=== PATIENT | male | born 1945 | race African-American/Black ===

== ENCOUNTER 2019-03-09 05:05 | Inpatient (IN) | payer MEDICARE ==
[2019-03-09] VITALS (7 sets, daily range): BP systolic 102–113; BP diastolic 55–59
[~2019-03-09] VITALS: Ht 172.7 cm; Wt 84.6 kg
[~2019-03-09 05:05] MED LIST: ALPHAGAN P5 ML OU; ASPIRIN325 MG PO; BENAZEPRIL HCL10 MG PO; CALCITRIOL0.25 MCG PO; CEPHALEXIN500 MG PO; GLIMEPIRIDE2 MG PO; GLYBURIDE5 MG PO; KLOR-CON M2020 MEQ PO; LASIX20 MG PO; LOPRESSOR25 MG PO; LUMIGAN2.5 M1 OU; MINOCYCLINE PO; NORVASC5 MG PO; NOVOLOG MI100 UNIT/1 SQ; NOVOLOG MI100 UNITS/; PEPCID20 MG PO; REGLAN10 MG PO; VASOTEC10 MG PO; VICODIN 5-5001 EACH PO; VITAMIN D1000 UNIT PO; XALATAN2.5 ML PO; ZOCOR20 MG PO
--- OUTSIDE RECORDS SUMMARY | 2019-03-09 05:10 | XMS REPORT ---
Author Author [facility] Address Unknown Phone Unavailable Care Team Providers Care Learning Facilitator Name Role Phone Unavailable Unavailable Problems This patient has no known problems. Allergies, Adverse Reactions, Alerts This patient has no known allergies or adverse reactions. Medications This patient has no known medications.
--- OUTSIDE RECORDS SUMMARY | 2019-03-09 05:10 | XMS REPORT ---
Author Organization Unknown Address [address] [place] [id number] Phone [phone] Care Team Providers Care Travel Pt Name Role Phone ALLISON "MIKAYLA" JAE CASAREZ 3 [phone] Allergies Code Code System Name Reaction Severity Status Onset No Known Allergies Active NKDA Medications Name Status Start Date Stop Date Advocate Pen Needle 31 gauge x 09/29" Active Not available amlodipine 10 mg tablet TAKE ONE TABLET BY MOUTH ONCE DAILY FOR 90 DAYS Active Not available aspirin 325 mg tablet Take 1 tablet every day by oral route. Active Not available benazepril 20 mg tablet TAKE ONE TABLET BY MOUTH ONCE DAILY FOR 90 DAYS Active Not available bupropion HCl XL 150 mg 24 hr tablet, extended release Take 1 tablet every day by oral route in the morning for 90 days. Active Not available calcitriol 0.25 mcg capsule Take 1 capsule every day by oral route. Active Not available clotrimazole 1 % topical cream APPLY 1 INCH TO THE AFFECTED AND SURROUNDING AREAS OF SKIN BY TOPICAL ROUTE 2 TIMES PER DAY IN THE MORNING AND EVENING Active Not available enalapril maleate 20 mg tablet Take 1 tablet every day by oral route. Completed 06/30/2016 famotidine 40 mg tablet TAKE ONE TABLET BY MOUTH ONCE DAILY AT BEDTIME Active Not available fluoxetine 20 mg capsule Take 1 capsule every day by oral route for 90 days. Active Not available furosemide 20 mg tablet Take 1 tablet twice a day by oral route. Active Not available glimepiride 4 mg tablet Take 1 tablet twice a day by oral route with meals. Active Not available metoprolol tartrate 100 mg tablet Take 1 tablet twice a day by oral route. Completed 02/28/2017 05/31/2017 Novolog Mix 70-30 FlexPen U-100 Insulin 100 unit/mL subcutaneous pen INJECT 20 UNITS IN THE AM AND 40 UNITS IN THE EVENING Completed 05/31/2017 Novolog Mix 70-30 U-100 Insulin 100 unit/mL subcutaneous solution INJECT 20 UNITS SUBCUTANEOUSLY IN THE MORNING, AND 40 UNITS IN THE EVENING Active Not available Novolog Mix 70-30FlexPen U-100 inject 20-4 units twice a day with meals Completed 11/28/2016 omega 3 600 mg-dha 216 mg-epa 324 mg-fish oil 1,200 mg capsule,del rel Take 2 capsules twice a day by oral route for 90 days. Active Not available Protonix 40 mg tablet,delayed release Take 1 tablet every day by oral route for 30 days. Completed 10/19/2017 rosuvastatin 40 mg tablet Take 1 tablet every day by oral route for 90 days. Active Not available simvastatin 40 mg tablet Take 1 tablet every day by oral route. Completed 12/19/2016 tamsulosin 0.4 mg capsule Take 1 capsule every day by oral route for 90 days. Active Not available Viagra 100 mg tablet take 1 tablet 30 minutes prior to sexual activity Active Not available Victoza 3-Alfonso 0.6 mg/0.1 mL (18 mg/3 mL) subcutaneous pen injector Inject 1.8 mg every day by subcutaneous route at bedtime for 90 days. Active Not available Problems Name Status Onset Date Source Renal Disorder Due to Type 2 Diabetes Mellitus Active 05/15/2015 History Pure Hypercholesterolemia Active 05/15/2015 History Blindness - Both Eyes Active 05/15/2015 History Hypertensive Heart and Renal Disease with (Congestive) Heart Failure Active 05/15/2015 History Old Myocardial Infarction Active 05/15/2015 History Chronic Combined Systolic and Diastolic Heart Failure Active 05/15/2015 History Chronic Kidney Disease Stage 3 Active 05/15/2015 History Chronic Kidney Disease Unknown 05/15/2015 History History of Cerebrovascular Accident without Residual Deficits Active 05/15/2015 History Automatic Implantable Cardiac Defibrillator in Situ Active 05/15/2015 History Coronary Bypass Graft Finding Active 05/15/2015 History Long-term Current Use of Drug Therapy Unknown 05/15/2015 History Type 2 Diabetes Mellitus Unknown 05/28/2015 History Adult Health Examination Unknown 05/28/2015 History Screening for Disorder Unknown 05/28/2015 History 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 Active 05/28/2015 History Diabetic Retinopathy Associated with Type 2 Diabetes Mellitus Active 05/28/2015 History Moderate Recurrent Major Depression Active 06/03/2015 History Secondary Hyperparathyroidism Active 06/30/2016 Nonproliferative Diabetic Retinopathy Active 12/19/2016 Central Retinal Vein Occlusion Active 12/19/2016 Malignant Glaucoma Active 12/19/2016 Drug-induced Dyspepsia Active 10/19/2017 Procedures Date Name Performed by 06/30/2016 Electrocardiogram [facility] [place] [id number] [facility] [address] [place] [address] ([address]) 11/28/2016 Electrocardiogram [facility] [place] [address] [facility] [address] [place] [address] (Work Place) Notes: 12/29/2015: Defibrillator device; Surgery Date: 2012 Lab Results Date Name Specimen Result Interpretation Description Value Range Status Address 05/31/2017 CBC W/ Auto Diff Wbc 4.53 x10*3/L 4.23-9.07 x10*3/L Final [facility]: [address] [facility]rera[facility] Rbc 5.18 10*12/L 4.63-6.08 10*12/L Final [facility]: [address] HerreraFormerly [facility] Hemoglobin 13.90 g/dL 13.70-17.50 g/dL Final [facility]: [address] Tomas[address] Mari [address] [place] [address] Hematocrit 42.3 % 40.1-51.0 % Final [facility]: [address] Tomas[address] Mari [address] [place] [address] Mcv 81.7 fL 80.0-100.0 fL Final [facility]: [address] HerreraFormerly [facility] Mch 26.8 pg 25.7-32.2 pg Final [facility]: [address] T[address] HerreraFormerly [facility] Mchc 32.9 g/dL 32.3-36.5 g/dL Final [facility]: [address] T[address] HerreraFormerly [facility] RDW-SD 40.5 fL 35.1-43.9 fL Final [facility]: [address] Tomas[address] Jimenez [address] Platelet Count 209.0 k/uL 163.0-337.0 k/uL Final [facility]: [address] HerreraFormerly [facility] High Mpv 12.1 fL 7.5-11.5 fL Final [facility]: [address] T[address] HerreraFormerly [facility] Neut% 58.0 % 34.0-67.9 % Final [facility]: [address] HerreraFormerly [facility] Lymph% 29.8 % 21.8-53.1 % Final [facility]: [address] Tomasa Herrera [place] Mon% 11.3 % 5.3-12.2 % Final [facility]: [address] Tomasa Herrera [place] Low Eos% 0.7 % 0.8-7.0 % Final [facility]: [address] Tomasa Herrera [place] Baso% 0.2 % 0.2-1.2 % Final [facility]: [address] Tomasa Herrera [place] Neut# 2.6 x10*3/L 1.8-5.4 x10*3/L Final [facility]: [address] Tomas[address] Herrera [place] Lymph# 1.4 x10*3/L 1.3-3.6 x10*3/L Final [facility]: [address] Tomasa Herrera [place] Mon# 0.5 x10*3/L 0.3-0.8 x10*3/L Final [facility]: [address] Tomasa Herrera [place] Low Eos# 0.03 x10*3/L 0.04-0.54 x10*3/L Final [facility]: [address] Tomasa Herrera [place] Baso# 0.01 x10*3/L 0.01-0.08 x10*3/L Final [facility]: [address] Tomasa Herrera [place] 05/31/2017 CMP, Serum or Plasma Alt 27 U/L 0-55 U/L Final [facility]: [address] Tomasa Mari [address] [place] [address] Ast 23 U/L 5-34 U/L Final [facility]: [address] HerreraFormerly [facility] Bun 18.5 mg/dL 8.4-25.7 mg/dL Final [facility]: [address] Tomasa Mari [address] [place] [address] Alk Phos 75 unit/L 40-150 unit/L Final [facility]: [address] HerreraFormerly [facility] High Glucose 300 mg/dL 70-99 mg/dL Final [facility]: [address] HerreraFormerly [facility] Albumin 3.6 g/dL 3.5-5.0 g/dL Final [facility]: [address] T[address] HerreraFormerly [facility] High Creatinine 1.71 mg/dL 0.72-1.25 mg/dL Final [facility]: [address] Tomas[address] Jimenez [place] [address], [place] Low eGFR Non- 40 mL/min/1.73m2 >60 mL/min/1.73m2 Final [facility]: [address] Jimenez [address] Total Bilirubin 0.4 mg/dL 0.2-1.2 mg/dL Final [facility]: [address] Tomasa Mari [address] [place] [address] Low eGFR - 48 mL/min/1.73m2 >60 mL/min/1.73m2 Final [facility]: [address] HerreraFormerly [facility] Sodium 141 mEq/L 136-145 mEq/L Final [facility]: [address] Tomasa Jimenez [place] [address], [place] Potassium 3.8 mEq/L 3.5-5.1 mEq/L Final [facility]: [address] Tomas[address] Jimenez [address] Chloride 105 mmol/L 98-107 mmol/L Final [facility]: [address] Tomas[address] Jimenez [address] Total Protein 7.4 g/dL 6.4-8.3 g/dL Final [facility]: [address] Tomas[address] Jimenez [address] Calcium 9.2 mg/dL 8.8-10.0 mg/dL Final [facility]: [address] Tmoasa Jimenez [place] [address], [place] Co2 26.6 mmol/L 23.0-31.0 mmol/L Final [facility]: [address] Tomas[address] Jimenez [address] Anion Gap 9 calc Final [facility]: [address] Tomasa Mari [address] [place] [address] 05/31/2017 Lipid Panel, Serum Low Hdl 38 mg/dL 40-60 mg/dL Final [facility]: [address] Tomas[address] Jimenez [address] Triglyceride 76 mg/dL 0-149 mg/dL Final [facility]: [address] Tomas[address] Jimenez [address] VLDL Calc. 15 mg/dL Final [facility]: [address] Tomasa Jimenez [address] cholesterol/HDL Ratio 3.9 mg/dL Final [facility]: [address] Tomasa Jimenez [address] non-HDL Cholesterol Calc. 111 mg/dL 0-160 mg/dL Final [facility]: [address] Tomasa Jimenez [address] Cholesterol 149 mg/dL 0-199 mg/dL Final [facility]: [facility] Tomasa kwaku [address] LDL Calc. 96 mg/dL 0-130 mg/dL Final [facility]: [facility] Tomasa kwaku [address] 05/31/2017 HbA1C (Hemoglobin a1C), Blood High A1C W/eag 8.4 % 1.0-5.7 % Final [facility]: [address] [place] [address] Average Blood Glucose 194 mg/dL Final [facility]: [address] [place], [place] [address]kwaku [address] 02/28/2017 Phosphorus, Serum or Plasma Normal Phosphate (as Phosphorus) 3.3 mg/dL 2.1-4.3 mg/dL Final [facility]: [address] [place] [address] 02/28/2017 Magnesium, Serum or Plasma Normal Magnesium 2.2 mg/dL 1.5- 2.5 mg/dL Final [facility]: [address] [place] [address] 02/28/2017 CBC W/ Auto Diff Low Wbc 4.13 x10*3/L 4.23-9.07 x10*3/L Final [facility]: [facility] Tomasa kwaku [address] Rbc 5.59 10*12/L 4.63-6.08 10*12/L Final [facility]: [facility] Tomasa Fwkwaku [address] Hemoglobin 14.90 g/dL 13.70-17.50 g/dL Final [facility]: [facility] Tomasa Fwkwaku [address] Hematocrit 44.8 % 40.1-51.0 % Final [facility]: [facility] Tomasa kwaku [address] Mcv 80.1 fL 80.0-100.0 fL Final [facility]: [facility] Tomasa kwaku [address] Mch 26.7 pg 25.7-32.2 pg Final [facility]: [facility] Tomasa kwaku [address] Mchc 33.3 g/dL 32.3-36.5 g/dL Final [facility]: [facility] Tomasa kwaku [address] RDW-SD 41.8 fL 35.1-43.9 fL Final [facility]: [facility] Tomasa kwaku [address] Platelet Count 216.0 k/uL 163.0-337.0 k/uL Final [facility]: [address] Tomasa Herrera [facility] Mpv 11.8 fL 7.5-11.5 fL Final [facility]: 9[address] Tomasa Herrera [place] Neut% 42.8 % 34.0-67.9 % Final [facility]: [address] Tomasa Herrera [place] Lymph% 41.2 % 21.8-53.1 % Final [facility]: [address] Tomasa Herrera [place] High Mon% 14.0 % 5.3-12.2 % Final [facility]: [address] Tomasa Herrera [place] Eos% 1.5 % 0.8-7.0 % Final [facility]: [address] Tomasa Herrera [place] Baso% 0.5 % 0.2-1.2 % Final [facility]: [address] Tomasa Herrera [place] Neut# 1.8 x10*3/L 1.8-5.4 x10*3/L Final [facility]: [address] Tomasa Herrera [place] Lymph# 1.7 x10*3/L 1.3-3.6 x10*3/L Final [facility]: [address] Tomasa Herrera [place] Mon# 0.6 x10*3/L 0.3-0.8 x10*3/L Final [facility]: [address] Tomasa Herrera [place] Eos# 0.06 x10*3/L 0.04-0.54 x10*3/L Final [facility]: [address] Tomasa Herrera [place] Baso# 0.02 x10*3/L 0.01-0.08 x10*3/L Final [facility]: [address] Tomasa Herrera [place] 02/28/2017 CMP, Serum or Plasma Alt 24 U/L 0-55 U/L Final [facility]: [address] Tomas[address] HerreraFormerly [facility] Ast 20 U/L 5-34 U/L Final [facility]: 55 Tomas[address] HerreraFormerly [facility] Bun 20.0 mg/dL 8.4-25.7 mg/dL Final [facility]: [address] T[address] HerreraFormerly [facility] Alk Phos 74 unit/L 40-150 unit/L Final [facility]: [address] Tomasa Herrera, [place] High Glucose 115 mg/dL 70-99 mg/dL Final [facility]: [address] Tomasa Herrera, [place] Albumin 4.0 g/dL 3.5-5.0 g/dL Final [facility]: [address] HerreraFormerly [facility] High Creatinine 1.86 mg/dL 0.72-1.25 mg/dL Final [facility]: [address] Tomasa Herrera, [place] Low eGFR Non- 36 mL/min/1.73m2 >60 mL/min/1.73m2 Final [facility]: [address] HerreraFormerly [facility] Total Bilirubin 0.6 mg/dL 0.2-1.2 mg/dL Final [facility]: [address] HerreraFormerly [facility] Low eGFR - 44 mL/min/1.73m2 >60 mL/min/1.73m2 Final [facility]: [address] Tomas[address] Jimenez [address] Sodium 143 mEq/L 136-145 mEq/L Final [facility]: [address] Tomasa Jimenez [address] Potassium 4.0 mEq/L 3.5-5.1 mEq/L Final [facility]: [address] HerreraFormerly [facility] Chloride 104 mmol/L 98-107 mmol/L Final [facility]: [address] HerreraFormerly [facility] High Total Protein 8.6 g/dL 6.4-8.3 g/dL Final [facility]: [address] HerreraFormerly [facility] Calcium 9.6 mg/dL 8.8-10.0 mg/dL Final [facility]: [address] Tomasa Mari [address] [place] [address] Co2 29.8 mmol/L 23.0-31.0 mmol/L Final [facility]: [address] T[address] HerreraFormerly [facility] Anion Gap 9 calc Final [facility]: [address] Tomasa Herrera, [place] 02/28/2017 Lipid Panel, Serum Low Hdl 39 mg/dL 40-60 mg/dL Final [facility]: [address] Tomasa Jimenez [address] Triglyceride 133 mg/dL 0-149 mg/dL Final [facility]: [address] VLDL Calc. 27 mg/dL Final [facility]: [address] cholesterol/HDL Ratio 7 mg/dL Final [facility]: [address] High non-HDL Cholesterol Calc. 227 mg/dL 0-160 mg/dL Final [facility]: [address] High Cholesterol 266 mg/dL 0-199 mg/dL Final [facility]: [address] High LDL Calc. 200 mg/dL 0-130 mg/dL Final [facility]: [address] [place] [address], [place] 02/28/2017 HbA1C (Hemoglobin a1C), Blood High A1C W/eag 9.6 % 1.0-5.7 % Final [facility]: [address] [place] [address] Average Blood Glucose 229 mg/dL Final [facility]: [address] [place] [address] 02/28/2017 Protein:creatinine Ratio, Urine Normal Creatinine, Random Urine 84 mg/dL 20-370 mg/dL Final [facility]: [address] [place] [address] High Protein/creatinine Ratio 702 mg/g creat 22-128 mg/g creat Final [facility]: [address] [place] [address] High Protein, Total, Random Ur 59 mg/dL 5-25 mg/dL Final [facility]: [address] [place] [address] 02/28/2017 PTH (Parathyroid Hormone), Intact, Serum or Plasma High Parathyroid Hormone, Intact 176 pg/mL 14-64 pg/mL Final [facility]: [address] [place] [address] 12/22/2016 Fecal Occult Blood, Stool Fecal Globin (Medicare) by Immunochemistry not detected Final [facility]: [address] [place] [address] 12/14/2016 BNP (B-type Natriuretic Peptide), Serum or Plasma High B Type Natriuretic Peptide (BNP) 126 pg/mL <100 pg/mL Final [facility]: [address] [place] [address] 11/28/2016 Protein:creatinine Ratio, Urine Normal Creatinine, Random Urine 120 mg/dL 20-370 mg/dL Final [facility]: [address] [place] [address] High Protein/creatinine Ratio 1242 mg/g creat 22-128 mg/g creat Final [facility]: [address] [place] [address] High Protein, Total, Random Ur 149 mg/dL 5-25 mg/dL Final [facility]: [address] [place] [address] 11/28/2016 PTH (Parathyroid Hormone), Intact, Serum or Plasma High Parathyroid Hormone, Intact 112 pg/mL 14-64 pg/mL Final [facility]: [address] [place] [address] 11/28/2016 PSA, Serum or Plasma Blood venous Normal PSA, Total 3.2 NG/mL < or=4.0 NG/mL Final [facility]: [address] [place] [address] 11/28/2016 Phosphorus, Serum or Plasma Normal Phosphate (as Phosphorus) 2.6 mg/dL 2.1-4.3 mg/dL Final [facility]: [address] [place] [address] 11/28/2016 Magnesium, Serum or Plasma Normal Magnesium 2.2 mg/dL 1.5- 2.5 mg/dL Final [facility]: [address] [place] [address] 11/28/2016 CBC W/ Auto Diff Wbc 4.31 x10*3/L 2.90-10.50 x10*3/L Final [facility]: [address] [place] [address] High Rbc 5.82 10*12/L 3.61-5.21 10*12/L Final [facility]: [address] [place] [address] Hemoglobin 15.70 g/dL 12.30-17.50 g/dL Final [facility]: [address] Hematocrit 47.1 % 37.1-51.3 % Final [facility]: [address] Mcv 80.9 fL 79.4-101.6 fL Final [facility]: [address] Tomasa kwaku [address] Mch 27.0 pg 26.2-34.8 pg Final [facility]: [address] [place], [place] [address]kwaku [address] Mchc 33.3 g/dL 30.2-35.6 g/dL Final [facility]: [address] [place], [place] [address]kwaku [address] RDW-SD 39.8 fL 35.8-49.8 fL Final [facility]: [address] Tomasa Herrera [place] Platelet Count 191.0 k/uL 118.8-347.0 k/uL Final [facility]: [address] Tomasa Herrera [place] Mpv 12.4 fL 8.4-13.4 fL Final [facility]: [address] Tomasa Herrera [place] Neut% 49.9 % 39.1-76.5 % Final [facility]: [address] Tomasa Herrera [place] Lymph% 34.8 % 13.8-46.8 % Final [facility]: [address] Tomasa Herrera [place] Mon% 14.4 % 4.6-14.4 % Final [facility]: [address] Tomasa Herrera [place] Low Eos% 0.7 % 0.8-7.3 % Final [facility]: [address] Tomasa Herrera [place] Baso% 0.2 % 0.2-1.5 % Final [facility]: [address] Tomasa Herrera [place] Neut# 2.2 x10*3/L 0.8-7.0 x10*3/L Final [facility]: [address] Tomasa Herrera [place] Lymph# 1.5 x10*3/L 0.6-3.2 x10*3/L Final [facility]: [address] Tomasa Herrera [place] Mon# 0.6 x10*3/L 0.2-1.0 x10*3/L Final [facility]: [address] Tomasa Herrera [place] Low Eos# 0.03 x10*3/L 0.04-0.51 x10*3/L Final [facility]: [address] Tomasa Herrera [place] Baso# 0.01 x10*3/L 0.01-0.09 x10*3/L Final [facility]: [address] Tomasa Herrera [place] 11/28/2016 CMP, Serum or Plasma Alt 21 U/L 0-55 U/L Final [facility]: [address] HerreraFormerly [facility] Ast 19 U/L 5-34 U/L Final [facility]: [address] Tomasa Herrera, [place] Bun 19 mg/dL 8-26 mg/dL Final [facility]: [address] Tomasa Herrera, [place] Alk Phos 75 unit/L 40-150 unit/L Final [facility]: [address] Tomasa Herrera, [place] High Glucose 359 mg/dL 70-99 mg/dL Final [facility]: [address] Tomasa Herrera, [place] Albumin 3.7 g/dL 3.5-5.0 g/dL Final [facility]: [address] Tomasa Herrera, [place] High Creatinine 1.84 mg/dL 0.72-1.25 mg/dL Final [facility]: [address] Tomasa Herrera [place] Low eGFR Non- 37 mL/min/1.73m2 >60 mL/min/1.73m2 Final [facility]: [address] Tomasa Herrera [place] Total Bilirubin 0.6 mg/dL 0.2-1.2 mg/dL Final [facility]: [address] HerreraFormerly [facility] Low eGFR - 44 mL/min/1.73m2 >60 mL/min/1.73m2 Final [facility]: [address] Tomasa Herrera [place] Sodium 141 mEq/L 136-145 mEq/L Final [facility]: [address] Tomasa Herrera, [place] Potassium 3.7 mEq/L 3.5-5.1 mEq/L Final [facility]: [address] Tomasa Herrera, [place] Chloride 102 mmol/L 98-107 mmol/L Final [facility]: [address] Tomasa Herrera, [place] Total Protein 8.3 g/dL 6.4-8.3 g/dL Final [facility]: 9055 Tomasa Herrera, [place] Calcium 9.5 mg/dL 8.8-10.0 mg/dL Final [facility]: 9055 Tomasa Herrera, [place] Co2 27.2 mmol/L 23.0-31.0 mmol/L Final [facility]: 9055 Tomasa Herrera, [place] Anion Gap 12 calc Final [facility]: 9055 Tomasa Herrera [place] 11/28/2016 Lipid Panel, Serum Low Hdl 37 mg/dL 40-60 mg/dL Final [facility]: [address] Triglyceride 141 mg/dL 0-149 mg/dL Final [facility]: [address] VLDL Calc. 28 mg/dL Final [facility]: [address] cholesterol/HDL Ratio 6 mg/dL Final [facility]: [address] High non-HDL Cholesterol Calc. 179 mg/dL 0-160 mg/dL Final [facility]: [address] High Cholesterol 216 mg/dL 0-199 mg/dL Final [facility]: [address] High LDL Calc. 151 mg/dL 0-130 mg/dL Final [facility]: [address] [place] [address], [place] 11/28/2016 T4, Total, Serum T4 Total 7.32 ug/dL 4.87-11.72 ug/dL Final [facility]: [address] [place] [address] 11/28/2016 TSH, Serum or Plasma Tsh 1.750 uIU/mL 0.350-4.940 uIU/mL Final [facility]: [address] 11/28/2016 HbA1C (Hemoglobin a1C), Blood High A1C W/eag 10.9 % 1.0- 5.7 % Final [facility]: [address] [place] [address] Average Blood Glucose 266 mg/dL Final [facility]: [address] [place] [address] 06/30/2016 Lipid Panel, Serum High Cholesterol, Total 304 mg/dL 125- 200 mg/dL Final [facility] Lab: [address], [place] Normal HDL Cholesterol 43 mg/dL > or=40 mg/dL Final [facility] Lab: [address], [place] Normal Triglycerides 129 mg/dL <150 mg/dL Final [facility] Lab: [address], [place] High LDL-cholesterol 235 mg/dL (calc) <130 mg/dL (calc) Final [facility] Lab: [address], [place] High Chol/hdlc Ratio 7.1 (calc) < or=5.0 (calc) Final [facility] Lab: [address], [place] High Non HDL Cholesterol 261 mg/dL (calc) Final [facility]: [address], [place] 06/30/2016 CBC W/ Auto Diff Normal White Blood Cell Count 5.5 thousand/uL 3.8-10.8 thousand/uL Final [facility]: [address], [place] Normal Red Blood Cell Count 5.48 million/uL 4.20-5.80 million/uL Final [facility] Lab: [address], [place] Normal Hemoglobin 14.7 g/dL 13.2-17.1 g/dL Final [facility]: [address], [place] Normal Hematocrit 44.8 % 38.5-50.0 % Final [facility]: [address], [place] Normal Mcv 81.9 fL 80.0-100.0 fL Final [facility]: [address], [place] Low Mch 26.9 pg 27.0-33.0 pg Final [facility]: [address], [place] Normal Mchc 32.8 g/dL 32.0-36.0 g/dL Final [facility]: [address], [place] High Rdw 15.1 % 11.0-15.0 % Final [facility]: [address], [place] Normal Platelet Count 196 thousand/uL 140-400 thousand/uL Final [facility]: [address], [place] Normal Mpv 11.0 fL 7.5-11.5 fL Final [facility] Lab: [address], [place] Normal Absolute Neutrophils 2855 cells/uL 6550-2537 cells/uL Final [facility]: [address], [place] Normal Absolute Lymphocytes 2085 cells/uL 850-3900 cells/uL Final [facility] Lab: [address], [place] Normal Absolute Monocytes 523 cells/uL 200-950 cells/uL Final [facility]: [address], [place] Normal Absolute Eosinophils 22 cells/uL 15-500 cells/uL Final [facility] Lab: [address], [place] Normal Absolute Basophils 17 cells/uL 0-200 cells/uL Final [facility] Lab: [address] [facility], [place] Normal Neutrophils 51.9 % Final [facility]: [address] [facility], [place] Normal Lymphocytes 37.9 % Final [facility]: [address] [facility], [place] Normal Monocytes 9.5 % Final [facility]: 70 [facility], [place] Normal Eosinophils 0.4 % Final [facility]: 70 [facility], [place] Normal Basophils 0.3 % Final [facility]: 70 [facility], [place] 06/30/2016 T4, Total, Serum Normal T4 (Thyroxine), Total 8.6 mcg/dL 4.5-12.0 mcg/dL Final [facility] Lab: [address] [place] [address], [place] 06/30/2016 TSH, Serum or Plasma Normal Tsh 2.89 mIU/L 0.40-4.50 mIU/L Final [facility] Lab: [address] [place] [address], [place] Albumin:creatinine Ratio, Urine Type Urine Microlalbumin 150 mg/L [facility]: [address] [facility] [address], [place] Type Urine Creatinine 100 mg/dL [facility]: [address] [facility] 200, [place] Type A:C Ratio >300 mg/g (High Abnormal) [facility]: [address] [facility] 200, [place] Electrocardiogram Rate & Rhythm [facility]: [address] [facility] 200, [place] Qrs [facility]: [address] [facility] 200, [place] Interval [facility]: [address] [facility] 200, [place] QRS Duration [facility]: [address] [facility] 200, [place] QT Interval [facility]: [address] [facility] 200, [place] Albumin:creatinine Ratio, Urine Type Urine Microlalbumin 150 mg/L [facility]: [address] [facility] 200, [place] Type Urine Creatinine 300 mg/dL [facility]: [address] [facility] 200, [place] Type A:C Ratio 30-300 mg/g (Abnormal) [facility]: [address] [facility] 200, [place] Electrocardiogram Rate & Rhythm [facility]: [address] [facility] [address], [place] Qrs [facility]: [address] [address], [place] Interval [facility]: [address] [address], [place] QRS Duration [facility]: [address] [address], [place] QT Interval [facility]: [address] [address], [place] Past Encounters 10/19/2017 Avulsion of Toenail; Hypertensive Heart and Renal Disease with (Congestive) Heart Failure; Chronic Combined Systolic and Diastolic Heart Failure; 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; Secondary Hyperparathyroidism; Blindness - Both Eyes; Recurrent Major Depression in Partial Remission; Vitreous Hemorrhage; Diabetic Retinopathy Associated with Type 2 Diabetes Mellitus; Drug- induced Dyspepsia; Malignant Glaucoma; Central Retinal Vein Occlusion; Nonproliferative Diabetic Retinopathy; Old Myocardial Infarction; Automatic Implantable Cardiac Defibrillator in Situ; Coronary Bypass Graft Finding; Renal Disorder Due to Type 2 Diabetes Mellitus; Chronic Kidney Disease Stage 3; History of Cerebrovascular Accident without Residual Deficits; Lower Urinary Tract Symptoms Due to Benign Prostatic Hypertrophy; Mixed Hyperlipidemia Allison Caballero MD: [address] [facility], [address] [address], Ph. 10/06/2017 Ijeoma Mcclure: 9055 [facility], [address] [address], Ph. 06/20/2017 Emelirod Millan: 9055 [facility], [address] [address], Ph. 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 05/02/2017 Cassaine Millan: 9055 [facility], [address] [address], Ph. 04/06/2017 Cassaine Millan: 9055 [facility], [address] [address], Ph. 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 02/03/2017 Nkechi Caballero: 9055 [facility] [address] [address], Ph. 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 11/28/2016 Adult Health Examination; Body Mass Index 30+ - Obesity; Hypertensive Heart and Renal Disease with (Congestive) Heart Failure; Chronic Combined Systolic and Diastolic Heart Failure; Diabetic Retinopathy Associated with Type 2 Diabetes Mellitus; 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; Renal Disorder Due to Type 2 Diabetes Mellitus; Chronic Kidney Disease Stage 3; Secondary Hyperparathyroidism; Severe Recurrent Major Depression without Psychotic Features; Automatic Implantable Cardiac Defibrillator in Situ; Old Myocardial Infarction; Coronary Bypass Graft Finding; Blindness - Both Eyes; G astroesophageal Reflux Disease without Esophagitis; Pure Hypercholesterolemia; History of Cerebrovascular Accident without Residual Deficits; Impotence of Organic Origin; Tinea Pedis; Screening for Malignant Neoplasm of Prostate; Screening for Malignant Neoplasm of Colon; Advance Directive Discussed with Patient Allison Caballero MD: 68951 [facility], [address] [address], [place] [address], Ph. 09/01/2016 Moderate Recurrent Major Depression; 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; Hypertensive Heart and Renal Disease with (Congestive) Heart Failure; Secondary Hyperparathyroidism; Chronic Combined Systolic and Diastolic Heart Failure; Blindness - Both Eyes Allison Caballero MD: 11652 [facility], [address], [place] [address], Ph. 06/30/2016 Adult Health Examination; Moderate Recurrent Major Depression; Hypertensive Heart and Renal Disease with (Congestive) Heart Failure; Chronic Combined Systolic and Diastolic Heart Failure; Old Myocardial Infarction; Automatic Implantable Cardiac Defibrillator in Situ; Coronary Bypass Graft Finding; 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; Diabetic Retinopathy Associated with Type 2 Diabetes Mellitus; Renal Disorder Due to Type 2 Diabetes Mellitus; Chronic Kidney Disease Stage 3; Pure Hypercholesterolemia; Gastroesophageal Reflux Disease without Esophagitis; Secondary Hyperparathyroidism; Impotence of Organic Origin; Blindness - Both Eyes; History of Cerebrovascular Accident without Residual Deficits; Screening for Malignant Neoplasm of Colon; Screening for Malignant Neoplasm of Prostate; Immunization Allison Caballero MD: 15356 [facility], [facility] 200, [place] [address], Ph. Social History Smoking Status Never Smoker Vaccine List Vaccine Type influenza, high dose seasonal 06/30/20160.5 mL 05/31/20170.5 mL pneumococcal polysaccharide PPV23 06/30/20160.5 mL Notes: decline's all vaccine's -10/19/2017-shaina Plan of Care Patient Instructions It was good to see you in the office today for your Medicare Annual Wellness Visit. You have been provided some information on healthy nutrition, including a diet rich in fruits and vegetables, minimizing simple carbohydrates, salt, and saturated fats. I want to encourage regular cardiovascular exercise such as walking at least 30 minutes daily, 5 times per week. Please remember to schedule any preventive health measures that we talked about today. You have also been provided education on fall prevention and community- based lifestyle interventions to help reduce health risks and promote healthy living in your [employer] folder. Screening Recommendations 1. Vaccines Pneumococcal: discussed today and information sent with patient in their [facility] health folder Influenza: discussed today and information sent with patient in their [facility] health folder Shingles: discussed today and information sent with patient in their [facility] health folder Tetanus: discussed today and information sent with patient in their [facility] health folder 2. Prostate Screening: discussed today and information sent with patient in their [facility] health folder 3. Colorectal cancer Screening Colonoscopy: discussed today and information sent with patient in their [facility] health folder Fecal Occult Blood: discussed today and information sent with patient in their [facility] health folder 4. Bone Mass Measurement: discussed today 5. Eye Exam Screening: discussed today 6. Cholesterol Screening: discussed today 7. Diabetes Screening: discussed today Reminders Provider Appointments None recorded. Lab None recorded. Referral None recorded. Procedures None recorded. Surgeries None recorded. Imaging None recorded. Vitals 10/19/2017 01:30PM Est Patient Height Weight BMI Blood Pressure 5 ft 8 in 197.8 lbs 30.1 kg/m2 150/74 mm[Hg] 05/31/2017 08:30AM Est Patient Height Weight BMI Blood Pressure 5 ft 8 in 206 lbs 31.3 kg/m2 163/86 mm[Hg] 02/28/2017 08:30AM Est Patient Height Weight BMI Blood Pressure 5 ft 8 in 215.6 lbs 32.8 kg/m2 135/82 mm[Hg] 12/19/2016 04:15PM Est Patient Height Weight BMI Blood Pressure 5 ft 8 in 215 lbs 32.7 kg/m2 171/81 mm[Hg] 11/28/2016 10:00AM CRAFT RECRUITER/EST CPX Height Weight BMI Blood Pressure 5 ft 8 in 215.4 lbs 32.8 kg/m2 (1) 136/85 mm[Hg] (2) 139/85 mm[Hg] 09/01/2016 08:30AM Est Patient Height Weight BMI Blood Pressure 5 ft 8 in 221.4 lbs 33.7 kg/m2 170/90 mm[Hg] 06/30/2016 02:45PM Est Patient Height Weight BMI Blood Pressure 5 ft 8 in 224 lbs 34.1 kg/m2 (1) 165/90 mm[Hg] (2) 167/92 mm[Hg] 12/29/2015 Height Weight BMI Blood Pressure 5 ft 8 in 219.6 lbs 33.39 kg/m2 156/78 mm[Hg] 05/28/2015 Height Weight BMI Blood Pressure 5 ft 8 in 219.8 lbs 33.42 kg/m2 120/72 mm[Hg] 05/15/2015 Height Weight BMI Blood Pressure 5 ft 8 in 219.8 lbs 33.42 kg/m2 142/76 mm[Hg] 03/19/2015 Height Weight BMI Blood Pressure 5 ft 8 in 215 lbs 32.69 kg/m2 132/84 mm[Hg] 02/16/2015 Height Weight BMI Blood Pressure 5 ft 8 in 216 lbs 32.84 kg/m2 160/80 mm[Hg] 01/03/2015 Height Weight BMI Blood Pressure 5 ft 8 in 218.4 lbs 33.20 kg/m2 122/74 mm[Hg] 08/04/2014 Height Weight BMI Blood Pressure 5 ft 8 in 216.8 lbs 32.96 kg/m2 138/70 mm[Hg] 01/27/2014 Height Weight 5 ft 8 in 215.6 lbs 10/17/2013 Height Weight 5 ft 8 in 224.2 lbs 09/24/2013 Height Weight 5 ft 8 in 226.2 lbs 05/13/2013 Height Weight 5 ft 8 in 220.3 lbs 02/12/2013 Height Weight 5 ft 8 in 213 lbs 12/04/2012 Height Weight 5 ft 8 in 218 lbs 08/28/2012 Height Weight 5 ft 8 in 220.6 lbs 08/22/2012 Height Weight 5 ft 8 in 218.6 lbs 07/27/2012 Height Weight 5 ft 8 in 218.6 lbs
[2019-03-09] MEDS ORDERED: CRESTOR40 MG PO (05:37)
[2019-03-09] MEDS ORDERED: BENAZEPRIL-HCT1 EAC3 PO (05:37)
[2019-03-09] MEDS ORDERED: DOXAZOSIN MESYLA4 MG PO (05:37)
[2019-03-09] MEDS ORDERED: FUROSEMIDE20 MG PO (05:37)
[2019-03-09] MEDS ORDERED: FAMOTIDINE40 MG PO (05:37)
[2019-03-09] MEDS ORDERED: GLIMEPIRIDE4 MG PO (05:37)
[2019-03-09] MEDS ORDERED: AMLODIPINE BESY10 MG PO (05:37)
[2019-03-09] MEDS ORDERED: VITAMIN D250000 UNIT PO (05:37)
[2019-03-09] MEDS ORDERED: FLOMAX0.4 MG PO (05:37)
[2019-03-09] MEDS ORDERED: BUPROPION XL150 MG PO (05:37)
[2019-03-09 05:51] LABS: BASOPHILS % 0.4 % (0.0-1.0); EOSINOPHILS # (AUTO) 0.1 (0.0-0.4); HEMATOCRIT 40.1 % (38.2-49.6); HEMOGLOBIN 13.1 g/dL (14.0-18.0); LYMPHOCYTES # (AUTO) 1.5 (1.0-3.2); MEAN CORPUSCULAR HEMOGLOBIN 26.3 pg (28-32); MEAN CORPUSCULAR HGB CONC 32.7 g/dL (31-35); MEAN CORPUSCULAR VOLUME 80.5 fL (81-99); MONOCYTES # (AUTO) 0.6 (0.2-0.8); MONOCYTES % 11.5 % (4.4-11.3); NEUTROPHILS # (AUTO) 2.9 (2.1-6.9); NEUTROPHILS % 56.9 % (38.7-80.0); PLATELET COUNT 204 x10e3/uL (140-360); RED BLOOD COUNT 4.98 x10e6/uL (4.3-5.7); RED CELL DISTRIBUTION WIDTH 14.1 % (11.7-14.4)
[2019-03-09 06:05] LABS: ALBUMIN 4.2 g/dL (3.5-5.0); ALBUMIN/GLOBULIN RATIO 1.1 (0.8-2.0); CALCIUM 9.9 mg/dL (8.4-10.2); CREATININE, SERUM 6.24 mg/dL (0.72-1.25)
[2019-03-09 06:11] LABS: CREATINE KINASE MB 2.2 ng/mL (0-5.0)
--- NOTE | 2019-03-09 06:21 | NUR ---
BLADDER SCANNED: 111, 116, 117 AMOUNTS. AWARE
[2019-03-09] MEDS ORDERED: SODIUM CHLORIDE 0.9% 1000ML 1,000 ML IV ONE (06:30)
[2019-03-09] MEDS ORDERED: ONDANSETRON HCL INJ 2MG/ML 2ML 2 MG/ML VIAL IV PRN (06:30)
[2019-03-09] MEDS ORDERED: DEXTROSE 50% SYRINGE 50 ML IV PRN (06:30)
--- NOTE | 2019-03-09 06:31 | Diagnostic Imaging Report ---
CT BRAIN WO HISTORY: Weakness COMPARISON: None Technique: Noncontrast axial scans were obtained from skull base to the vertex. Coronal and sagittal reconstructions obtained from the axial data. One or more of the following dose reduction techniques were used: Automated exposure control, adjustment of the mA and/or kV according to patient size, and/or utilization of iterative reconstruction technique. DISCUSSION: Scalp/Skull: Unremarkable. Brain sulci: Mildly prominent. Ventricles: Compensatory dilatation. Extra-axial spaces: No masses or fluid collections. Carotid and vertebral artery calcifications are present. Parenchyma: There is an old cortical infarct along the left intraparietal sulcus A few old small right postcentral sulcus and bilateral cerebellar cortical infarcts are also present. Moderate bilateral deep white matter hypodensity is likely chronic microvascular ischemic change. Associated old bilateral striatocapsular lacunar infarcts are present. Otherwise, no masses, hemorrhage, or large vascular territory acute infarct. Dural sinuses: No abnormal densities. Sellar/Suprasellar region: Intact. Skull base: Intact. Incidental findings: Partially visualized left orbital mass in the area of the left lacrimal gland measures up to 2 cm in transverse dimension. IMPRESSION: 1. No acute intracranial abnormalities. 2. Old left parietal cortical infarct. 3. Additional old small right postcentral sulcus and bilateral cerebellar cortical infarcts. 4. Mild supratentorial chronic microvascular ischemic change with old bilateral striatocapsular lacunar infarcts. 5. Mild generalized cerebral volume loss. Signed by: Dr. Jose Bucio M.D. on 03/09/2019 6:28 AM
--- NOTE | 2019-03-09 06:51 | NUR ---
REPORT TO ALYSON DEJESUS
--- NOTE | 2019-03-09 06:52 | NUR ---
RECEIVED REPORT FROM OFF GOING NURSE. PATIENT IN ROOM IN BED, FAMILY AT BEDSIDE. PENDING ROOM ASSIGNMENT FOR ADMISSION.
--- NOTE | 2019-03-09 07:18 | Diagnostic Imaging Report ---
EXAMINATION: CHEST SINGLE (PORTABLE) INDICATION: Weakness. COMPARISON: None FINDINGS: TUBES and LINES: Left sided AICD with leads overlying the right atrium and right ventricle. LUNGS: Low lung volumes. Patchy left basilar opacity. No evidence of pulmonary edema. PLEURA: No pleural effusion or pneumothorax. HEART AND MEDIASTINUM: The cardiomediastinal silhouette is unremarkable. BONES AND SOFT TISSUES: No acute osseous abnormality. UPPER ABDOMEN: No free air under the diaphragm. IMPRESSION: Patchy left basilar opacity, more likely atelectasis than pneumonia. Signed by: Dr. Abhishek Brady MD on 03/09/2019 7:15 AM
[2019-03-09 07:57] LABS: BILIRUBIN,URINE NEGATIVE (NEGATIVE); CLARITY,URINE CLEAR (CLEAR); COLOR,URINE YELLOW (YELLOW); KETONES,URINE NEGATIVE (NEGATIVE); LEUKOCYTE ESTERASE ,URINE SMALL (NEGATIVE); NITRITE,URINE NEGATIVE (NEGATIVE); PROTEIN,URINE DIPSTICK 2+ (NEGATIVE); URINE UROBILINOGEN 0.2 mg/dL (0.2 - 1)
[2019-03-09] MEDS: INSULIN REGULAR, HUMAN 100 UNIT/1 ML 3ML VIAL SQ SCH ×4 (08:05→21:15)
--- NOTE | 2019-03-09 08:09 | NUR ---
received pt lying in stretcher from ER accompanied by daughter. denies pain at this time. oriented to room and use of call light. call light placed within reach.
[2019-03-09 08:12] LABS: BACTERIA,URINE MODERATE /HPF; EPITHELIAL CELLS,URINE FEW /LPF; RBC,URINE 0-5 /HPF (0-5); TRANSITIONAL EPI CELLS,URINE FEW; WBC,URINE (MAN) 21-50 /HPF (0-5)
[2019-03-09] MEDS: BUPROPION HCL 150 MG TABCR PO SCH (09:25)
[2019-03-09] MEDS: CALCITRIOL 0.25 MCG CAP PO SCH (09:25)
[2019-03-09] MEDS: FAMOTIDINE 20 MG TAB PO SCH (09:26)
[2019-03-09] MEDS: TAMSULOSIN HCL 0.4 MG CAP PO SCH (09:26)
[2019-03-09] MEDS: ASPIRIN 325 MG TAB PO SCH (09:26)
[2019-03-09] MEDS: AMLODIPINE BESYLATE 10 MG TAB PO SCH (09:38)
[2019-03-09] MEDS: CEFTRIAXONE SOD 1 GM/NS 50 ML 50 ML IV SCH (14:43)
[2019-03-09] MEDS: SODIUM CHLORIDE 0.9% 1000ML 1,000 ML IV SCH (15:46)
--- NOTE | 2019-03-09 16:52 | Diagnostic Imaging Report ---
EXAM: Renal Ultrasound INDICATION: Acute renal failure. COMPARISON: None TECHNIQUE: Transverse and longitudinal images of the kidneys and bladder were obtained. FINDINGS: Right Kidney: Length: Measures 9.2 x 5.6 x 5.5 cm Appearance: Normal echogenicity. Collecting system: No hydronephrosis Stones: None Cyst/Mass: There are multiple simple appearing anechoic right-sided renal cysts, largest measuring up to 5.0 cm in the lower pole. No evidence of solid mass. Left Kidney: Length: Measures 11.8 x 5.9 x 4.6 cm Appearance: Normal echogenicity. Collecting system: No hydronephrosis Stones: None Cyst/Mass: Simple appearing 2.1 cm anechoic cyst within the left mid pole. No evidence of solid mass. Bladder: Unremarkable in appearance. Bilateral ureteral jets are present. The prevoid volume is 341-cc. IMPRESSION: No evidence of hydronephrosis. Simple appearing bilateral renal cysts. Signed by: Dr. Abhishek Brady MD on 03/09/2019 4:48 PM
--- NOTE | 2019-03-09 19:21 | NUR ---
Report received from morning rn.patient is lyeing in the bed.
[2019-03-09] MEDS: DOXAZOSIN MESYLATE 2 MG TAB PO SCH (21:00)
[2019-03-09] MEDS: CRESTOR 10MG PO SCH (21:34)
--- NOTE | 2019-03-09 21:53 | Consultation ---
DATE OF CONSULTATION: 03/09/2019 Nephrology Consult HISTORY OF PRESENT ILLNESS: The patient is a 73-year-old man, who has a history of diabetes, hypertension, coronary artery disease, and benign prostatic hypertrophy. He presents for evaluation of weakness. I am asked to evaluate for acute kidney injury. I reviewed the assessment and plan with ER physician on initial contact as well as with the patient and his at bedside. The patient's states that the patient has some mild kidney involvement, but no further details are known. At this he presents with 1 to 2-week history of worsening weakness or progressive weakness associated with some anorexia and orthostatic dizziness. On admission, his creatinine is 6.24 mg/dL with a BUN of 77 mg/dL. Other chemistries are within limits regarding sodium, potassium, and calcium. He has a slight metabolic acidosis and superimposed mild metabolic alkalosis with initial labs. His medications include lovastatin, Lasix, Benja inhibitor with HCT component. The patient's states that he has been complaint with his daily medications. He has not used over the counter supplements nor nonsteroidal anti-inflammatory medications. He is not aware of any difficulties with his prostate, although he is on the below mentioned medications. REVIEW OF SYSTEMS: His review of systems is notable for weakness, anorexia, change in taste, orthostatic dizziness, and malaise. He denies flank pain, suprapubic pain, gross hematuria, lower extremity edema, paroxysmal nocturnal dyspnea, angina, hemoptysis, cough, or headaches. He has had no pleuritic chest pain, palpitations, paroxysmal nocturnal dyspnea, skin lesions, skin rash, arthralgias, or headaches. PAST MEDICAL HISTORY: Diabetes, hypertension, BPH, and coronary artery disease with prior bypass. He also has glaucoma and decreased vision in both eyes. PAST SURGICAL HISTORY: Coronary bypass and cataract surgery. ALLERGIES: NO KNOWN DRUG ALLERGIES. FAMILY HISTORY: Sister required dialysis secondary to diabetes, now . MEDICATIONS: Reviewed on SEP. LABORATORY DATA: Sodium 138, potassium 4.0, chloride 99, bicarbonate 23, BUN 77, creatinine 6.2, glucose 188, and calcium 9.9. Total protein 8.2, albumin 4.2, and globulin 4.0. White count 5.1, hemoglobin 13.1, and platelets 204. Urinalysis, yellow, clear, positive protein, positive blood on dip stick, small leukocyte esterase, moderate bacteria, 0-5 red cells, 21-50 white cells, and 1-5 coarse granular cast noted by report. CT of brain revealed no acute intracranial abnormalities. Positive old left parietal cortical infarct, additional old small right postcentral sulcus and bilateral cerebellar cortical infarcts. Other details per formal report. PHYSICAL EXAMINATION: GENERAL: He is awake, alert, tired appearing. VITAL SIGNS: Afebrile at 96.4, pulse 85, respirations 16, and systolic 109-113/56-64 diastolic. HEAD AND NECK: Dry oral mucosa. Atraumatic, normocephalic. No scleral or mucosal lesions. NECK: Supple. No JVP. Positive midline trachea. LUNGS: Clear bilaterally. No wheezes, rhonchi, or rales. BACK: No bilateral CVA tenderness. CARDIAC: Regular rate. No S3 rubs. Soft systolic murmur. ABDOMEN: Soft, nontender, and nondistended. No guarding or rebound. : No suprapubic discomfort on palpation. EXTREMITIES: Lower extremities show no edema, cyanosis, or skin rash. ASSESSMENT: 1. Acute kidney injury, superimposed on likely underlying chronic kidney disease as result of advanced age, diabetes, and hypertension. 2. Acute kidney injury to be considered secondary to an acute tubular necrosis effect of sustained volume depletion and renal hypoperfusion effect. Statin induced renal failure to be considered as well as Benja inhibitor effect with diuretic use, to rule out an obstructive component. 3. Volume status is depleted. 4. Electrolytes are stable. 5. Slight metabolic acidosis with slight metabolic alkalosis superimposed. Hemodynamically fairly stable. 6. Increased globulin fraction, which may represent Hemoconcentration. 7. Urinary tract infectious process. 8. Proteinuria. PLAN: 1. Renal ultrasound to assess size, echogenicity, and symmetry to rule out any obstructive component. 2. Daily renal panel. 3. Renal diet. 4. Continue IV fluid. 5. Check serum and urine immunofixation studies. 6. Continue to avoid BENJA inhibitors, ARB agents, diuretics and statins as being done. 7. Avoid nonsteroidal anti-inflammatory medications. 8. Consider Benavides catheter placement if his urination is difficult and to rule out an obstructive component also. 9. Dosages medications for creatinine clearance less than 10 to 12 mL/m. 10. Presently no acute indication for dialysis at this time, but I did review in need for dialytic support if worsening renal function or other parameters ensues. 11. Possible to obtain outpatient laboratories from his primary physician which the patient's states he has seen within last 1 to 2 months. We will make other recommendations as per clinical course. MD LATRELL Pal/MODL /[id number]
--- NOTE | 2019-03-09 23:04 | NUR ---
Assessment done.no resp.distress.no pain voiced.iv fluid running to right ac.need to collect urine c/s.family member at bed side.bed locked and in lowest position.stable condition.
[2019-03-10] VITALS (9 sets, daily range): BP systolic 102–138; BP diastolic 55–73
[2019-03-10] MEDS: CEFTRIAXONE SOD 1 GM/NS 50 ML 50 ML IV SCH ×2 (01:43→14:25)
[2019-03-10] MEDS: SODIUM CHLORIDE 0.9% 1000ML 1,000 ML IV SCH ×3 (02:03→21:30)
--- NOTE | 2019-03-10 04:00 | NUR ---
urine sent to the lab for culture.but Minor Rosado wanted to do the urine culture with old urine sample which collected on 09 march. spoke to microbiology dept.Dionte.agreed to do so.
[2019-03-10 05:50] LABS: BASOPHILS % 0.5 % (0.0-1.0); EOSINOPHILS # (AUTO) 0.1 (0.0-0.4); HEMATOCRIT 36.7 % (38.2-49.6); HEMOGLOBIN 11.9 g/dL (14.0-18.0); LYMPHOCYTES # (AUTO) 1.3 (1.0-3.2); LYMPHOCYTES % 29.1 % (18.0-39.1); MEAN CORPUSCULAR HEMOGLOBIN 26.4 pg (28-32); MEAN CORPUSCULAR HGB CONC 32.4 g/dL (31-35); MEAN CORPUSCULAR VOLUME 81.6 fL (81-99); MONOCYTES # (AUTO) 0.6 (0.2-0.8); MONOCYTES % 12.7 % (4.4-11.3); NEUTROPHILS # (AUTO) 2.5 (2.1-6.9); NEUTROPHILS % 55.7 % (38.7-80.0); PLATELET COUNT 196 x10e3/uL (140-360); RED CELL DISTRIBUTION WIDTH 14.3 % (11.7-14.4)
[2019-03-10 06:21] LABS: ALBUMIN 3.6 g/dL (3.5-5.0); ALBUMIN/GLOBULIN RATIO 0.9 (0.8-2.0); ANION GAP 12.6 mmol/L (8-16); CALCIUM 9.6 mg/dL (8.4-10.2); CREATININE, SERUM 4.83 mg/dL (0.72-1.25); POTASSIUM 4.6 mmol/L (3.5-5.1)
--- NOTE | 2019-03-10 06:59 | NUR ---
Bed side shift report given to the on coming rn.stable condition.
--- NOTE | 2019-03-10 07:20 | NUR ---
Morning rounds completed. Assisted patient to restroom. No c/o of pain or signs of distress. Bed locked and in low position, call light placed within reach. Patient instructed to call for assistance. Daughter at bedside. Will continue to monitor.
[2019-03-10] MEDS: AMLODIPINE BESYLATE 10 MG TAB PO SCH (08:43)
[2019-03-10] MEDS: TAMSULOSIN HCL 0.4 MG CAP PO SCH (08:43)
[2019-03-10] MEDS: BUPROPION HCL 150 MG TABCR PO SCH (08:43)
[2019-03-10] MEDS: FAMOTIDINE 20 MG TAB PO SCH (08:43)
[2019-03-10] MEDS: ASPIRIN 325 MG TAB PO SCH (08:43)
[2019-03-10] MEDS: CALCITRIOL 0.25 MCG CAP PO SCH (08:43)
[2019-03-10] MEDS: INSULIN REGULAR, HUMAN 100 UNIT/1 ML 3ML VIAL SQ SCH ×4 (08:43→21:02)
[2019-03-10 09:27] LABS: ANION GAP 15.9 mmol/L (8-16); CALCIUM 9.2 mg/dL (8.4-10.2); CREATININE, SERUM 4.79 mg/dL (0.72-1.25); POTASSIUM 3.9 mmol/L (3.5-5.1)
--- NOTE | 2019-03-10 18:55 | NUR ---
Bedside report given to night nurse. Patient in stable condition.
--- NOTE | 2019-03-10 19:00 | NUR ---
Bed side shift report taken from morning rn.patient is watching TV.stable condition.iv fluid running to right ac.
[2019-03-10] MEDS: CRESTOR 10MG PO SCH (21:02)
[2019-03-10] MEDS: DOXAZOSIN MESYLATE 2 MG TAB PO SCH (21:05)
--- NOTE | 2019-03-10 22:49 | NUR ---
No pain voiced.family member at bed side.bed alarm on.bed locked and in lowest position.phone and calllight within reach.instructed to call for assistance as needed.
[2019-03-11] VITALS (7 sets, daily range): BP systolic 106–134; BP diastolic 60–70
[2019-03-11] MEDS: CEFTRIAXONE SOD 1 GM/NS 50 ML 50 ML IV SCH ×2 (02:07→13:46)
--- NOTE | 2019-03-11 03:21 | NUR ---
BLOOD ADRIAN AND SEN TO THE LAB.
[2019-03-11 03:54] LABS: BASOPHILS % 0.2 % (0.0-1.0); EOSINOPHILS # (AUTO) 0.1 (0.0-0.4); EOSINOPHILS % 1.8 % (0.0-6.0); HEMATOCRIT 37.2 % (38.2-49.6); HEMOGLOBIN 11.9 g/dL (14.0-18.0); LYMPHOCYTES # (AUTO) 1.2 (1.0-3.2); LYMPHOCYTES % 28.4 % (18.0-39.1); MEAN CORPUSCULAR HEMOGLOBIN 25.9 pg (28-32); MEAN CORPUSCULAR VOLUME 80.9 fL (81-99); MONOCYTES # (AUTO) 0.5 (0.2-0.8); MONOCYTES % 10.4 % (4.4-11.3); NEUTROPHILS # (AUTO) 2.6 (2.1-6.9); PLATELET COUNT 181 x10e3/uL (140-360); RED CELL DISTRIBUTION WIDTH 14.2 % (11.7-14.4)
[2019-03-11 04:12] LABS: CALCIUM 9.6 mg/dL (8.4-10.2); CREATININE, SERUM 3.92 mg/dL (0.72-1.25)
[2019-03-11] MEDS: SODIUM CHLORIDE 0.9% 1000ML 1,000 ML IV SCH ×2 (05:21→17:15)
--- NOTE | 2019-03-11 06:50 | NUR ---
Bed side shift report given to the on coming rn.stable condition.
[2019-03-11 07:11] LABS: MAGNESIUM 2.5 MG/DL (1.3-2.1)
--- NOTE | 2019-03-11 07:28 | NUR ---
Rcvd patient in report this am. Patient is asleep in bed at this time. No s/s of distress noted
[2019-03-11] MEDS: INSULIN REGULAR, HUMAN 100 UNIT/1 ML 3ML VIAL SQ SCH ×4 (07:30→21:00)
[2019-03-11] MEDS: AMLODIPINE BESYLATE 10 MG TAB PO SCH (08:42)
[2019-03-11] MEDS: BUPROPION HCL 150 MG TABCR PO SCH (08:42)
[2019-03-11] MEDS: CALCITRIOL 0.25 MCG CAP PO SCH (08:42)
[2019-03-11] MEDS: FAMOTIDINE 20 MG TAB PO SCH (08:42)
[2019-03-11] MEDS: ASPIRIN 325 MG TAB PO SCH (08:42)
[2019-03-11] MEDS ORDERED: ONDANSETRON HCL 4 MG ORAL DISINTEGRATING TAB PO PRN (08:45)
[2019-03-11] MEDS ORDERED: ERGOCALCIFEROL 50,000 UNIT CAP PO SCH (09:00)
--- NOTE | 2019-03-11 09:38 | NUR ---
EDUCATED ABOUT IMM, SIGNED, FILED IN CHART, WITH COPY LEFT WITH FAMILY AT BEDSIDE.
--- NOTE | 2019-03-11 10:00 | NUR ---
Patient is AAOx3. Patient is legally blind. Family at bedside. Lung gama clear to auscultation. Bowel sounds present x4. No edema noted. No c/o pain. IV fluids infusing. Monitoring output and patient voiding clear urine.
--- NOTE | 2019-03-11 10:22 | NUR ---
IV leaking at this time. Will attempt to start a new IV
--- NOTE | 2019-03-11 13:21 | NUR ---
FAXED FACESHEET AND ORDER FOR WHEELCHAIR TO [facility] FOR PROCESSING. SPOKE WITH DAUGHTER WHOM STATES NEEDS WHEELCHAIR MORE THAN WALKER.
--- NOTE | 2019-03-11 14:49 | NUR ---
Nutrition Screen Note RD Recommendation for Physician: -Continue current diet per MD. -Consider 1800 ADA diet pending glucose trends. Plan of Care: RD following, monitoring for tolerance and adequacy. Education provided. Nutrition reason for involvement: Diagnosis Primary Diagnose(s): Acute renal failure, generalized weakness PMH: diabetes, hypertension, coronary artery disease, and benign prostatic hypertrophy. Ht: 68 in Wt: 186 lb BMI: 28.3kg/m2 IBW: [address] Assessment: (03/11) 73 YOM admitted for acute renal failure with PMH listed above. Pt reported a good appetite here in the hospital as well as at home prior to admission, no unintentional weight loss recently. Denied N/V/constipation/chewing or swallowing issues as well as any food allergies. Pt and family member were educated on T2DM and renal diet and given educational handout. Chart reviewed. POC GM: 129-240. Labs and meds reviewed. Will continue to monitor. Current Diet: renal Malnutrition Evaluation (03/11) The patient does not meet criteria for a specified degree of malnutrition at this time. Will re-evaluate at follow-up as appropriate. Diet Education Needs Assessment: Diet education indicated, pt agreeable. Learner(s): pt and family member Barriers: none Cultural/Language Modifications: none Readiness: acceptance Method: discussion, handout, teach back Topics:Renal and T2DM diet Understanding/Compliance: verbalized understanding, anticipate good compliance Nutrition Care Level: low Signed: Akiko Dejesus RD, LD
--- NOTE | 2019-03-11 19:00 | NUR ---
Walking rounds done and report received. Patient in NAD. Daughter at the bedside. Call lord within reach, bed in lowest position, and locked.
[2019-03-11] MEDS ORDERED: TAMSULOSIN HCL 0.4 MG CAP PO SCH (21:00)
[2019-03-11] MEDS: DOXAZOSIN MESYLATE 2 MG TAB PO SCH (21:11)
[2019-03-11] MEDS: CRESTOR 10MG PO SCH (21:11)
[2019-03-12] VITALS: BP 139/63
--- NOTE | 2019-03-12 01:00 | NUR ---
Patient resting in bed without any complaints voiced. Daughter remains at bedside. Call lord within reach.
[2019-03-12] MEDS: CEFTRIAXONE SOD 1 GM/NS 50 ML 50 ML IV SCH ×2 (02:25→13:28)
[2019-03-12] MEDS: SODIUM CHLORIDE 0.9% 1000ML 1,000 ML IV SCH ×2 (02:35→13:28)
[2019-03-12 03:26] LABS: BASOPHILS % 0.2 % (0.0-1.0); EOSINOPHILS # (AUTO) 0.1 (0.0-0.4); EOSINOPHILS % 2.1 % (0.0-6.0); HEMATOCRIT 34.8 % (38.2-49.6); HEMOGLOBIN 11.5 g/dL (14.0-18.0); LYMPHOCYTES # (AUTO) 1.5 (1.0-3.2); LYMPHOCYTES % 31.6 % (18.0-39.1); MEAN CORPUSCULAR HEMOGLOBIN 26.7 pg (28-32); MEAN CORPUSCULAR VOLUME 80.7 fL (81-99); MONOCYTES # (AUTO) 0.5 (0.2-0.8); MONOCYTES % 9.5 % (4.4-11.3); NEUTROPHILS # (AUTO) 2.7 (2.1-6.9); NEUTROPHILS % 56.4 % (38.7-80.0); PLATELET COUNT 173 x10e3/uL (140-360); RED BLOOD COUNT 4.31 x10e6/uL (4.3-5.7); RED CELL DISTRIBUTION WIDTH 14.1 % (11.7-14.4)
[2019-03-12 03:50] LABS: ANION GAP 11.8 mmol/L (8-16); CALCIUM 9.5 mg/dL (8.4-10.2); CREATININE, SERUM 2.83 mg/dL (0.72-1.25); POTASSIUM 3.8 mmol/L (3.5-5.1)
[2019-03-12 04:00] VITALS: BP 131/63
[2019-03-12 06:28] LABS: ALBUMIN 3.5 g/dL (3.5-5.0); ALBUMIN/GLOBULIN RATIO 0.9 (0.8-2.0); ANION GAP 12.8 mmol/L (8-16); CALCIUM 9.2 mg/dL (8.4-10.2); CREATININE, SERUM 2.84 mg/dL (0.72-1.25); POTASSIUM 3.8 mmol/L (3.5-5.1)
--- NOTE | 2019-03-12 07:14 | NUR ---
Received patient lying in bed with eyes closed. Respiration even and unlabored without SOB. Call light within reach.
[2019-03-12] MEDS: INSULIN REGULAR, HUMAN 100 UNIT/1 ML 3ML VIAL SQ SCH ×3 (07:30→17:19)
[2019-03-12] MEDS: FAMOTIDINE 20 MG TAB PO SCH (08:01)
[2019-03-12 08:19] VITALS: BP 139/66
[2019-03-12] MEDS: ASPIRIN 325 MG TAB PO SCH (08:43)
[2019-03-12] MEDS: AMLODIPINE BESYLATE 10 MG TAB PO SCH (08:43)
[2019-03-12] MEDS: CALCITRIOL 0.25 MCG CAP PO SCH (08:43)
[2019-03-12] MEDS: BUPROPION HCL 150 MG TABCR PO SCH (08:44)
[2019-03-12 09:35] VITALS: BP 139/66
[2019-03-12 12:07] VITALS: BP 118/60
--- NOTE | 2019-03-12 13:57 | NUR ---
CM RECEIVED ORDERS FOR HOME HEALTH SERVICES. CM TO BEDSIDE TO SPEAK WITH PATIENT/DAUGHTER REGARDING CHOICE. PATIENT'S DAUGHTER HAS CHOSEN [facility]. CM WILL FAX REFERRAL PACKET TO [facility]. CM EXPLAINED PROCESS. PATIENT'S DAUGHTER, FLORES WARNER ([phone]) VERBALIZED UNDERSTANDING OF DISCUSSION. CHOICE LETTER PLACED IN CHART. CM WILL CONTINUE TO FOLLOW FOR ONGOING ASSESSMENT OF DC NEEDS.
--- NOTE | 2019-03-12 15:14 | NUR ---
HOME HEALTH DISCHARGE NOTE PATIENT ADDRESS WHERE SERVICE WILL BE RECEIVED: [id number], [facility] [address] PATIENT CONTACT NUMBER: JC TANNER: [phone] NAME OF HOME HEALTH COMPANY: [employer] TELEPHONE/FAX NUMBER OF COMPANY: O: [phone] OR [phone] ADDRESS OF [employer]: [address] [place] [address] SERVICES TO RECEIVE: NURSE TO EVALUATE, THERAPIES ANTICIPATED DATE SERVICES WILL BEGIN: 03/13/19 CM REQUESTED FOR FAMILY MEMBER TO Please call the company above if you have not received a call to schedule a home visit within 24 hours of discharge.
--- NOTE | 2019-03-12 15:35 | NUR ---
Patient is discharging to home today. PIV to left FA discontinued. Catheter tip intact. No bleeding noted. 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
[2019-03-12 16:37] VITALS: BP 118/76
[2019-03-12 17:48] LABS: CREATININE,URINE RANDOM 50.72 mg/dL (63-166)
--- NOTE | 2019-03-12 18:38 | NUR ---
Patient transported via own wheelchair to discharge home. Respiration even and unlabored. Belongings with the patient.
--- NOTE | 2019-03-13 19:52 | Discharge Summary ---
ADMISSION DIAGNOSES: 1. Weakness. 2. Acute kidney injury on chronic kidney disease 3. 3. Urinary tract infection. 4. Hypertension with chronic kidney disease 5. 5. Coronary artery disease. 6. Chronic congestive heart failure. 7. Type 2 diabetes with chronic kidney disease 5. 8. Chronic systolic congestive heart failure. 9. Old stroke with no residuals. DISCHARGE DIAGNOSES: 1. Weakness. 2. Acute kidney injury on chronic kidney disease 3. 3. Urinary tract infection. 4. Hypertension with chronic kidney disease 5. 5. Coronary artery disease. 6. Chronic congestive heart failure. 7. Type 2 diabetes with chronic kidney disease 5. 8. Chronic systolic congestive heart failure. 9. Old stroke with no residuals. 10. Rule out chronic kidney disease 5. HISTORY: Hypertension, type 2 diabetes, CKD 3 , CAD status post CABG, chronic systolic CHF, BPH, stroke with no residual. SURGICAL HISTORY: CABG, AICD. FAMILY HISTORY: Diabetes and high blood pressure. SOCIAL HISTORY: Noncontributory. HOSPITAL COURSE: A 73-year-old male with generalized weakness for the last 2 days. Denies vertigo and syncope, lightheadedness, nausea, vomiting, and dysuria. On admission, the patient's GFR was 11. In 2017, the GFR was 52. IV fluids were started. PT/OT was consulted and Nephrology was also consulted. For possible UTI, Rocephin was started. Diuretics were held. An echo was ordered that showed an EF of 45% to 50%. At time of discharge, GFR went up to 27. Renal ultrasound showed no evidence of hydronephrosis and simple bilateral renal cyst. Chest x-ray showed patchy left basilar opacity, more likely atelectasis than pneumonia. CT of the brain was negative for acute abnormalities. Urine culture was negative. [place] lambda light chains were pending at the time of discharge. The patient will discharge home with continued medication. He will continue to increase his p.o. intake at home. The patient understands discharge instructions and agrees to plan. Vital signs are stable and the patient is afebrile. Dictated by Ashlee Currie NP Reed Mistry MD VIOLET/MODL /[id number]
== END 2019-03-12 18:37 | disposition home health service (06) | DRG 683 ==
LOC: ER 05:05 → ERHOLD 06:32 → MED/SURG 08:09
PROVIDERS: ADMIT Internal Medicine; ATTEND Internal Medicine
DX: N17.0 Acute kidney failure with tubular necrosis (principal); I13.2 Hypertensive heart and chronic kidney disease with heart failure and with stage 5 chronic kidney disease, or end stage renal disease; N39.0 Urinary tract infection, site not specified; E87.2 Acidosis; E87.3 Alkalosis; I50.22 Chronic systolic (congestive) heart failure; J98.11 Atelectasis; N18.5 Chronic kidney disease, stage 5; E11.22 Type 2 diabetes mellitus with diabetic chronic kidney disease; Z86.73 Personal history of transient ischemic attack (TIA), and cerebral infarction without residual deficits; I25.10 Atherosclerotic heart disease of native coronary artery without angina pectoris; N40.0 Benign prostatic hyperplasia without lower urinary tract symptoms; E86.9 Volume depletion, unspecified; Z95.810 Presence of automatic (implantable) cardiac defibrillator; H40.9 Unspecified glaucoma; H54.3 Unqualified visual loss, both eyes
CPT/HCPCS: 36415; 70450; 71045; 76770; 80048; 80053; 81001; 82550; 82553; 82575; 82948; 83735; 83880; 84100; 84165; 84484; 85025; 87086; 93005; 93306; 96361; 97139; 99284; J0696; J1817; J7030

== ENCOUNTER 2019-06-09 17:12 | Inpatient (IN) | payer MEDICARE ==
[~2019-06-09] VITALS: Ht 172.7 cm; Wt 87.1 kg
[~2019-06-09 17:12] MED LIST changes: +AMLODIPINE BESY10 MG PO; +BENAZEPRIL-HCT1 EAC3 PO; +BUPROPION XL150 MG PO; +CRESTOR40 MG PO; +DOXAZOSIN MESYLA4 MG PO; +FAMOTIDINE40 MG PO; +FLOMAX0.4 MG PO; +FUROSEMIDE20 MG PO; +GLIMEPIRIDE4 MG PO; +VITAMIN D250000 UNIT PO
[2019-06-09 17:52] LABS: BASOPHILS % 0.3 % (0.0-1.0); EOSINOPHILS % 0.6 % (0.0-6.0); HEMATOCRIT 35.7 % (38.2-49.6); HEMOGLOBIN 11.3 g/dL (14.0-18.0); MEAN CORPUSCULAR HEMOGLOBIN 26.2 pg (28-32); MEAN CORPUSCULAR HGB CONC 31.7 g/dL (31-35); MEAN CORPUSCULAR VOLUME 82.8 fL (81-99); MONOCYTES # (AUTO) 0.7 (0.2-0.8); MONOCYTES % 11.8 % (4.4-11.3); NEUTROPHILS # (AUTO) 3.4 (2.1-6.9); NEUTROPHILS % 54.7 % (38.7-80.0); PLATELET COUNT 301 x10e3/uL (140-360); RED BLOOD COUNT 4.31 x10e6/uL (4.3-5.7); RED CELL DISTRIBUTION WIDTH 12.9 % (11.7-14.4)
[2019-06-09] MEDS ORDERED: PIPER-TAZ 3.375 GM 50 ML IV ONE (18:00)
[2019-06-09 18:10] LABS: ALBUMIN 3.7 g/dL (3.5-5.0); ALBUMIN/GLOBULIN RATIO 0.8 (0.8-2.0); CALCIUM 9.8 mg/dL (8.4-10.2); CREATININE, SERUM 3.27 mg/dL (0.72-1.25); MAGNESIUM 2.3 MG/DL (1.3-2.1)
--- NOTE | 2019-06-09 18:12 | Diagnostic Imaging Report ---
EXAMINATION: CHEST SINGLE (PORTABLE) INDICATION: Necrotic right toe. COMPARISON: Chest radiograph 03/09/2019 at 5:36 AM. FINDINGS: TUBES and LINES: Left sided AICD with leads overlying the right atrium and right ventricle. LUNGS: Low lung volumes. Mild patchy left basilar opacity, likely atelectasis. No evidence of lobar pneumonia or pulmonary edema. PLEURA: No pleural effusion or pneumothorax. HEART AND MEDIASTINUM: The cardiomediastinal silhouette is unremarkable. BONES AND SOFT TISSUES: No acute osseous abnormality. Status post median sternotomy. UPPER ABDOMEN: No free air under the diaphragm. IMPRESSION: No acute radiographic abnormality. Signed by: Dr. Abhishek Brady MD on 06/09/2019 6:08 PM
[2019-06-09 18:13] LABS: INR 1.01; PARTIAL THROMBOPLASTIN TIME 29.2 seconds (23.8-35.5); PROTHROMBIN TIME 13.8 seconds (11.9-14.5)
[2019-06-09 18:17] LABS: CREATINE KINASE MB 2.7 ng/mL (0-5.0)
--- NOTE | 2019-06-09 18:17 | Diagnostic Imaging Report ---
Exam: Right foot radiographs-3 views Clinical History: Gangrenous necrotic right second toe. Comparison: None. Findings: No evidence of acute fracture or malalignment. No evidence of bony erosion. No evidence of soft tissue gas. Mild cortical thickening along the medial aspect of the third metatarsal may reflect stress-related changes or sequela of prior trauma. Atherosclerotic vascular calcifications of the posterior tibial artery. Impression: No specific radiographic evidence of osteomyelitis. Signed by: Dr. Abhishek Brady MD on 06/09/2019 6:13 PM
[2019-06-09 18:19] LABS: BILIRUBIN,URINE NEGATIVE (NEGATIVE); CLARITY,URINE SL CLOUDY (CLEAR); COLOR,URINE YELLOW (YELLOW); KETONES,URINE NEGATIVE (NEGATIVE); LEUKOCYTE ESTERASE ,URINE TRACE (NEGATIVE); NITRITE,URINE NEGATIVE (NEGATIVE); PROTEIN,URINE DIPSTICK 1+ (NEGATIVE); URINE UROBILINOGEN 0.2 mg/dL (0.2 - 1)
[2019-06-09 18:29] LABS: BACTERIA,URINE FEW /HPF; EPITHELIAL CELLS,URINE FEW /LPF; RBC,URINE 0-5 /HPF (0-5)
[2019-06-09] MEDS ORDERED: VANCOMYCIN 1GM/NS 250 ML 250 ML IV ONE (18:30)
[2019-06-09] MEDS ORDERED: DEXTROSE 50% SYRINGE 50 ML IV PRN (18:45)
[2019-06-09] MEDS ORDERED: ONDANSETRON HCL INJ 2MG/ML 2ML 2 MG/ML VIAL IV PRN (18:45)
[2019-06-09] MEDS ORDERED: SODIUM CHLORIDE 0.9% 1000ML 1,000 ML IV ONE (18:45)
[2019-06-09 20:00] VITALS: BP 133/61
[2019-06-09 20:51] VITALS: BP 133/61
[2019-06-09 21:00] VITALS: BP 133/61
[2019-06-09] MEDS: INSULIN LISPRO 100 UNIT/1 ML 3ML VIAL SQ SCH (21:35)
[2019-06-10] VITALS (7 sets, daily range): BP systolic 115–134; BP diastolic 57–65
[2019-06-10] MEDS: PIPERACILLIN/TAZO 2.25 GM 50 ML IV SCH ×4 (00:40→17:20)
[2019-06-10 04:47] LABS: CREATINE KINASE MB 1.4 ng/mL (0-5.0)
[2019-06-10 05:45] LABS: BASOPHILS % 0.4 % (0.0-1.0); EOSINOPHILS # (AUTO) 0.1 (0.0-0.4); HEMATOCRIT 33.4 % (38.2-49.6); HEMOGLOBIN 10.5 g/dL (14.0-18.0); LYMPHOCYTES # (AUTO) 1.3 (1.0-3.2); LYMPHOCYTES % 25.9 % (18.0-39.1); MEAN CORPUSCULAR HEMOGLOBIN 26.3 pg (28-32); MEAN CORPUSCULAR HGB CONC 31.4 g/dL (31-35); MEAN CORPUSCULAR VOLUME 83.7 fL (81-99); MONOCYTES # (AUTO) 0.6 (0.2-0.8); MONOCYTES % 11.7 % (4.4-11.3); PLATELET COUNT 270 x10e3/uL (140-360); RED BLOOD COUNT 3.99 x10e6/uL (4.3-5.7); RED CELL DISTRIBUTION WIDTH 12.9 % (11.7-14.4)
--- NOTE | 2019-06-10 06:10 | NUR ---
PAGED DR BAUER FOR CONSULT. AWAITING FOR MD TO CALL BACK
[2019-06-10 06:12] LABS: ALBUMIN 3.2 g/dL (3.5-5.0); ALBUMIN/GLOBULIN RATIO 0.8 (0.8-2.0); ANION GAP 12.1 mmol/L (8-16); CALCIUM 9.4 mg/dL (8.4-10.2); CREATININE, SERUM 2.77 mg/dL (0.72-1.25); POTASSIUM 4.1 mmol/L (3.5-5.1)
[2019-06-10 06:35] LABS: CREATINE KINASE MB 1.4 ng/mL (0-5.0)
--- NOTE | 2019-06-10 07:10 | NUR ---
RCD PT AT BED PT IS ALERT AND ORIENTED PT RESTING ON BED NO SIGNS OF ANY DISTRESS NOTED IV PATENT BY SALINE FLUSH FAMILY AT BED SIDE BED LOW AND LOCKED CALL LIGHT IN REACH
[2019-06-10] MEDS: INSULIN LISPRO 100 UNIT/1 ML 3ML VIAL SQ SCH ×4 (07:30→21:52)
[2019-06-10] MEDS ORDERED: HYDRALAZINE HCL 20 MG/ML VIAL IV PRN (09:30)
[2019-06-10] MEDS ORDERED: ACETAMINOPHEN 325 MG TAB PO PRN (09:30)
[2019-06-10] MEDS ORDERED: ACETAMINOPHEN/CODEINE 300MG - 30MG TAB PO PRN (09:30)
[2019-06-10] MEDS: TAMSULOSIN HCL 0.4 MG CAP PO SCH (10:30)
[2019-06-10] MEDS: ASPIRIN 325 MG TAB PO SCH (10:30)
[2019-06-10] MEDS: VANCOMYCIN 1GM/NS 250 ML 250 ML IV SCH (10:30)
--- NOTE | 2019-06-10 11:14 | Consultation ---
DATE OF CONSULTATION: 06/10/2019 HISTORY OF PRESENTING ILLNESS: This is a 74-year-old male with past medical history of type 2 diabetes, peripheral neuropathy, hypertension, coronary artery disease, hyperlipidemia, and blindness, who was admitted to the emergency room yesterday for a worsening infection to his right 2nd toe. The patient has been admitted for further workup. The majority of the history was taken to the patient's daughter. The patient's daughter relates approximately about a month ago, the patient stubbed his toe and the nail came off, and since then the toe has become increasingly dark and has been moving proximally towards the base of the toe. The patient denies pain. Currently, denies nausea, vomiting, fever, chills, chest pain, or shortness of breath. PAST MEDICAL HISTORY: Type 2 diabetes, peripheral neuropathy, heart disease, hypertension, coronary artery disease, hyperlipidemia, blindness, and peripheral vascular disease. MEDICATIONS: Per the chart. ALLERGIES: NO KNOWN ALLERGIES. PAST SURGICAL HISTORY: Back surgery, cataract surgery, and pacemaker. SOCIAL HISTORY: Has a history of smoking. Currently, denies smoking, denies drinking, denies any illicit drug usage. PHYSICAL EXAMINATION: GENERAL: Alert and oriented x3, in no apparent distress. VITAL SIGNS: Today, temperature 98.7, heart rate 74, respiratory rate 18, blood pressure 120/60, and pulse ox 97% on room air. PROBLEM FOCUSED LOWER EXTREMITY PHYSICAL EXAM: VASCULAR: Dorsalis pedis and posterior tibial pulses are nonpalpable. Capillary refill time is delayed to all digits. No capillary refill time is noted to the patient's right 2nd digit. Necrosis is noted from just distal to the proximal interphalangeal joint. Negative erythema, edema, or warmth. There is absent pedal hair. NEUROLOGICAL: Sensation is diminished to light touch bilateral. MUSCULOSKELETAL: Negative pain on palpation to the area. Otherwise, deferred. DERMATOLOGICAL: Dry gangrenous necrotic changes are noted to the distal tip of the patient's right 2nd digit extending to the proximal interphalangeal joint. Negative erythema, edema, or warmth is noted. LABORATORY DATA: White blood cell count is 4.87, hemoglobin 10.5, hematocrit 33.4, platelet count 270, neutrophil percentage 61.0. Sodium 138, potassium 4.1, chloride 108, CO2 22, BUN 46, creatinine 2.77, and glucose 121. X-rays, 3 views were taken of the patient's right foot, which shows no radiographic evidence of osteomyelitis. No bony erosion. No evidence of soft tissue gas. ASSESSMENT: 1. Right 2nd digit gangrene. 2. Type 2 diabetes, peripheral neuropathy. 3. Peripheral vascular disease. PLAN: The patient was seen and evaluated. Discussed condition and treatment options with the patient in detail. At this time, discussed with the patient that arterial Dopplers are pending. We will talk to primary team to have a Cardiology consult to determine if intervention is necessary at this time. Discussed with the patient and patient's daughter that the patient will likely need at least an amputation of the right 2nd toe, depending on results of arterial Dopplers and Cardiology consultation. The wound was then dressed with a Hydrogel dressing change. The Podiatry Service will continue to monitor. RADHA Baker/ROBBIE /[id number]
[2019-06-10] MEDS: FAMOTIDINE 20 MG TAB PO SCH (16:30)
[2019-06-10] MEDS: FUROSEMIDE 20 MG TAB PO SCH (17:00)
--- NOTE | 2019-06-10 19:16 | NUR ---
PT RESTING ON BED BED SIDE REPORT GIVEN TO ONCOMING NURSE
[2019-06-10] MEDS ORDERED: MELATONIN 5 MG TABLET PO PRN (21:00)
[2019-06-10] MEDS: CRESTOR 10MG PO SCH (21:20)
--- NOTE | 2019-06-10 22:37 | Consultation ---
DATE OF CONSULTATION: 06/10/2019 Cardiology Consultation CONSULTING PHYSICIAN: Rodolfo Gee MD, Interventional Cardiology. REASON FOR CONSULTATION: CAD. HISTORY OF PRESENT ILLNESS: Mr. Pacheco is a 74-year-old man with history of type 2 diabetes mellitus, morbid obesity, hypertension, dyslipidemia, CAD, anemia, blindness, history of PCI and history of cardiac device, who presents with right 2nd toe dry gangrene and associated erythema. He is admitted for IV antibiotics. We have been consulted to further evaluate. He denies any chest discomfort or shortness of breath, however, is overall sedentary. He denies any active discomfort with the lower extremity edema that is dependent. REVIEW OF SYSTEMS: A 12-system review is negative except for as noted above. ALLERGIES: NO KNOWN DRUG ALLERGIES. PAST MEDICAL HISTORY: Remarkable for diabetes, hypertension, dyslipidemia, CAD, blindness, CKD. SOCIAL HISTORY: No active smoking, alcohol, or drugs. FAMILY HISTORY: Noncontributory. PHYSICAL EXAMINATION: VITAL SIGNS: Temperature 98.1, heart rate 74, blood pressure 115/57, respiratory rate 18, O2 saturation 97% on nasal cannula, BMI is 29.1. GENERAL: In no acute distress, awake and alert. NECK: No JVD. CHEST: Decreased breath sounds in bilateral bases. CARDIOVASCULAR: Regular rate and rhythm. Normal S1, S2. Systolic ejection murmur 2/6. No S3, no S4. ABDOMEN: Soft. Bowel sounds positive. EXTREMITIES: Trace edema to both lower extremity. The right 2nd toe black discoloration. Abnormal pedal and dorsalis pedis pulses bilaterally. CARDIOVASCULAR MEDICATIONS: Reviewed. Tamsulosin 0.4 mg daily, aspirin 325 mg daily, furosemide 20 mg b.i.d., rosuvastatin 40 mg at bedtime, Zosyn and vancomycin. LABORATORY DATA: Studies reviewed. Sodium 138, potassium 4.1, chloride 108, bicarbonate 22, BUN 46, creatinine 3.7, glucose 121. Most recent creatinine prior to 08/23 was 3.27. White blood cells 4.8, hemoglobin 10.5, platelets 270. INR 1. PT 13.8, PTT 29.2. AST 11, ALT 10, alkaline phosphatase 55, and total bilirubin 0.3. ASSESSMENT: 1. A 74-year-old man presents with peripheral arterial disease with segment of right toe gangrene. 2. Chronic kidney disease, advanced with likely a component of acute kidney injury as creatinine is trending down. 3. Anemia. 4. Type 2 diabetes mellitus, hypertension, dyslipidemia. 5. Morbid obesity. 6. Coronary artery disease with previous reported history of percutaneous coronary intervention and cardiac device. PLAN AND RECOMMENDATIONS: 1. Obtain echocardiogram. 2. Arterial Dopplers have been ordered and pending. 3. Continue current cardiovascular medications. 4. Monitor renal function. The current GFR and renal insufficiency are stable with the creatinine. Regular angiography will pose elevated risk for contrast-induced nephropathy. 5. We will discuss further with the patient based on results of the recent study. Thank you for the opportunity to participate in the care of this patient. MD OswaldV/MODL /[id number]
[2019-06-11] VITALS (8 sets, daily range): BP systolic 112–151; BP diastolic 59–80
[2019-06-11] MEDS: PIPERACILLIN/TAZO 2.25 GM 50 ML IV SCH ×4 (00:15→16:47)
[2019-06-11 03:28] LABS: BASOPHILS % 0.5 % (0.0-1.0); EOSINOPHILS # (AUTO) 0.1 (0.0-0.4); EOSINOPHILS % 1.5 % (0.0-6.0); HEMATOCRIT 34.2 % (38.2-49.6); HEMOGLOBIN 10.8 g/dL (14.0-18.0); LYMPHOCYTES # (AUTO) 1.8 (1.0-3.2); LYMPHOCYTES % 30.9 % (18.0-39.1); MEAN CORPUSCULAR HEMOGLOBIN 26.3 pg (28-32); MEAN CORPUSCULAR HGB CONC 31.6 g/dL (31-35); MEAN CORPUSCULAR VOLUME 83.4 fL (81-99); MONOCYTES # (AUTO) 0.7 (0.2-0.8); MONOCYTES % 10.9 % (4.4-11.3); NEUTROPHILS # (AUTO) 3.3 (2.1-6.9); PLATELET COUNT 274 x10e3/uL (140-360)
[2019-06-11 03:45] LABS: CALCIUM 9.7 mg/dL (8.4-10.2); CHOL/HDL RATIO 4.9 (3.9-4.7); CREATININE, SERUM 2.52 mg/dL (0.72-1.25)
[2019-06-11] MEDS ORDERED: SODIUM CHLORIDE 0.9% 1000ML 1,000 ML IV SCH (05:30)
[2019-06-11] MEDS ORDERED: SODIUM CHLORIDE 0.9% 500ML 500 ML IV ONE (05:30)
[2019-06-11] MEDS: INSULIN LISPRO 100 UNIT/1 ML 3ML VIAL SQ SCH ×4 (07:30→21:30)
--- NOTE | 2019-06-11 08:08 | NUR ---
Pt sitting at the side of the bed. Aox4 and able to verbalize needs. 0 s/s of acute distress noted.
[2019-06-11] MEDS: ASPIRIN 325 MG TAB PO SCH (08:38)
[2019-06-11] MEDS: FAMOTIDINE 20 MG TAB PO SCH ×2 (08:38→16:47)
[2019-06-11] MEDS: TAMSULOSIN HCL 0.4 MG CAP PO SCH (08:39)
[2019-06-11] MEDS: FUROSEMIDE 20 MG TAB PO SCH ×2 (08:39→16:47)
[2019-06-11] MEDS: VANCOMYCIN 1GM/NS 250 ML 250 ML IV SCH (08:50)
[2019-06-11] MEDS ORDERED: NON-FORMULARY MEDICATION (Rosuvastatin Calcium (Crestor) 40 MG) PO SCH (09:00)
--- NOTE | 2019-06-11 09:57 | Progress Note ---
DATE: 06/11/2019 SUBJECTIVE: This is a 74-year-old male with past medical history of type 2 diabetes, peripheral neuropathy, hypertension, coronary artery disease, hyperlipidemia, blindness, peripheral vascular disease, who was admitted for worsening cellulitis and gangrene to his right toe 2 days ago. No acute issues overnight. The patient currently denies pain. Denies nausea, vomiting, fever, chills, chest pain, or shortness of breath. PHYSICAL EXAMINATION: GENERAL: The patient is alert, does not appear to be in any acute distress. VITAL SIGNS: Temperature 98.2, heart rate 72, respiratory rate 18, blood pressure 129/80, and pulse ox 96% on room air. PROBLEM FOCUSED LOWER EXTREMITY: Vascular, dorsalis pedis and posterior tibial pulses are nonpalpable. Capillary refill time is delayed to all digits. Dry necrotic gangrenous changes are noted to the patient's right second digit at the level of proximal interphalangeal joint. Negative erythema, edema, or warmth is noted. Absent pedal hair. NEUROLOGICAL: Sensation is diminished to light touch bilateral. MUSCULOSKELETAL: Negative pain on palpation to the area. Otherwise, deferred. DERMATOLOGICAL: Dry gangrenous necrotic changes are noted to the distal tip of the patient's right second digit, appears to be demarcated at the level of the proximal interphalangeal joint. Negative erythema, edema, or warmth. LABORATORY DATA: White blood cell count is 5.96, hemoglobin 10.8, hematocrit 34.2, and platelet count is 274. Sodium 139, potassium 4.0, chloride 107, CO2 of 24, BUN 38, and creatinine 2.52. Hemoglobin A1c is 8. IMAGING: Arterial Dopplers reveal significant stenosis in the popliteal, posterior tibial and anterior tibial arteries to the right lower extremity and on the left lower extremity, significant arterial stenosis to the posterior tibial and anterior tibial arteries. ASSESSMENT: 1. Right second digit gangrene. 2. Type 2 diabetes with peripheral neuropathy. 3. Peripheral vascular disease. PLAN: The patient was seen and evaluated. Discussed condition and treatment options with the patient and the patient's daughter in detail. Discussed with the patient's daughter that the patient has significant arterial stenosis to the right lower extremity. I appreciate Cardiology consultation for input. Due to elevated kidney function and contrast needed during angiography, Cardiology unable to do procedure until kidney function stabilizes. Would prefer intervention if possible prior to amputation as it is not acutely infected at this time. I discussed this with the patient and the patient's family. They understand. We will attempt to discuss with Dr. Gee today to plan for amputation. RADHA Baker/ROBBIE /[id number]
--- NOTE | 2019-06-11 11:32 | NUR ---
WOUND CARE CONSULT FOR 74 YO MALE DIABETIC PATIENT HX OF ISCHEMIC RIGHT 2ND TOE VACULAR STUDIES SHOW COMPROMISED CIRCULATION WHICH MAY CALL FOR REVASCULARIZATION FLOYD 17 ON CONSERVATIVE PUP ON ALTERNATING PRESSURE SURFACE LABS: WBC-5.96,HGB-10.8, GLUCOSE-117,HEM A1C-9.7 SKIN ASSESSMENT COMPLETE PATIENT PRESENTS WITH DARK NECROTIC RIGHT SECOND TOE DARK DRY NON DRAINING RECOMMENDATIONS: NURSING TO PROTECT AND MAINTAIN CLEAN AND DRY STABLE NECROTIC RT SECOND TOE PATIENT MAY BENEFIT FROM OUTPATIENT WOUND CARE SERVICES AND SCREENING FOR HYPERBARICS FOR ADDED HEALING ASSISTANCE POST REVASCULARIZATION INFORMATION SHARED WITH PATIENT AND FAMILY Addendum: 06/11/19 at 1144 by Kirill Collado RN Amended: Links added.
--- NOTE | 2019-06-11 19:35 | NUR ---
Received patient from day nurse, patient is alert and oriented, safety and fall precautions maintained. patient is legally blind and safety precautions observed at all times.
--- NOTE | 2019-06-11 20:06 | Progress Note ---
DATE: 06/11/2019 Cardiology Progress note SUBJECTIVE: Denies any chest pain or shortness of breath. Eating with assistance from family member today. Discussed plan of care and answered all questions. OBJECTIVE: VITAL SIGNS: Temperature 97.9, heart rate 73, blood pressure 123/59, respiratory rate 20, and O2 saturation 97%, BMI 29. GENERAL: In no acute distress, alert. NECK: No JVD. CHEST: Clear to auscultation. CARDIOVASCULAR: Regular rate and rhythm. Normal S1, S2. Systolic ejection murmur. ABDOMEN: Soft, nontender. Bowel sounds positive. EXTREMITIES: With trace edema to both lower extremities and gangrenous right toe changes stable. CARDIOVASCULAR MEDICATIONS: Have been reviewed. Aspirin 325 mg daily, furosemide 20 mg b.i.d., and atorvastatin 40 mg at bedtime. STUDIES: Reviewed. Sodium 139, potassium 4, chloride 107, bicarbonate 24, BUN 38, creatinine 2.5, glucose 117. White blood cells 5.9, hemoglobin 10.8, and platelets 274. INR 1, PT 13.8, PTT 29. AST 11, ALT 10, and alkaline phosphatase is 55, total bilirubin is 0.3. ASSESSMENT AND PLAN: A 74-year-old man presents with toe gangrene. He has severe peripheral vascular disease by arterial Doppler suggestive of occluded popliteal arteries and [id number] multilevel disease bilaterally. He has also acute renal failure with improving creatinine over the last 3 days. He is undergoing antibiotic therapy. He is also anemic with stable H and H and undergoing volume optimization with diuretics. RECOMMEND: At this point given acute renal failure, not a candidate for angiographic assessment and revascularization given elevated risk for contrast induced nephropathy. I would advise on deferring this to once renal function has recovered and/or stabilized if to a significant degree. For now, continuing antibiotics as necessary wound care and joint care with Podiatry is advised. If stable dry gangrene and no infection controlled can consider staged outpatient peripheral revascularization followed by a toe amputation or limited amputation in joint care with Podiatry, Dr. Lema. MD JOAN Casas/MODAnyi /[id number]
[2019-06-11] MEDS: CRESTOR 10MG PO SCH (21:30)
[2019-06-12] MEDS ORDERED: SODIUM CHLORIDE 0.9% 250ML 250 ML ONE (00:14)
[2019-06-12 00:46] VITALS: BP 103/53
[2019-06-12 04:20] LABS: BASOPHILS % 0.3 % (0.0-1.0); EOSINOPHILS # (AUTO) 0.1 (0.0-0.4); EOSINOPHILS % 1.5 % (0.0-6.0); HEMATOCRIT 34.9 % (38.2-49.6); LYMPHOCYTES # (AUTO) 1.9 (1.0-3.2); LYMPHOCYTES % 30.8 % (18.0-39.1); MEAN CORPUSCULAR HEMOGLOBIN 26.4 pg (28-32); MEAN CORPUSCULAR HGB CONC 31.5 g/dL (31-35); MEAN CORPUSCULAR VOLUME 83.7 fL (81-99); MONOCYTES # (AUTO) 0.6 (0.2-0.8); MONOCYTES % 10.3 % (4.4-11.3); NEUTROPHILS # (AUTO) 3.5 (2.1-6.9); NEUTROPHILS % 56.9 % (38.7-80.0); PLATELET COUNT 298 x10e3/uL (140-360); RED BLOOD COUNT 4.17 x10e6/uL (4.3-5.7); RED CELL DISTRIBUTION WIDTH 12.9 % (11.7-14.4)
[2019-06-12 04:37] LABS: ANION GAP 12.9 mmol/L (8-16); CALCIUM 9.7 mg/dL (8.4-10.2); CREATININE, SERUM 2.77 mg/dL (0.72-1.25); POTASSIUM 3.9 mmol/L (3.5-5.1)
[2019-06-12 04:51] VITALS: BP 132/68
[2019-06-12] MEDS: PIPERACILLIN/TAZO 2.25 GM 50 ML IV SCH ×3 (06:00→12:02)
[2019-06-12 07:15] VITALS: BP 125/71
[2019-06-12] MEDS: INSULIN LISPRO 100 UNIT/1 ML 3ML VIAL SQ SCH ×3 (07:30→16:48)
[2019-06-12 08:00] VITALS: BP 125/71
[2019-06-12] MEDS: FAMOTIDINE 20 MG TAB PO SCH ×2 (08:30→16:49)
[2019-06-12] MEDS: FUROSEMIDE 20 MG TAB PO SCH ×2 (08:30→16:49)
[2019-06-12] MEDS: TAMSULOSIN HCL 0.4 MG CAP PO SCH (08:30)
[2019-06-12] MEDS: ASPIRIN 325 MG TAB PO SCH (08:30)
--- NOTE | 2019-06-12 10:49 | Progress Note ---
DATE: 06/12/2019 SUBJECTIVE: This is a 74-year-old male with past medical history of type 2 diabetes, peripheral neuropathy, hypertension, coronary artery disease, hyperlipidemia, blindness, peripheral vascular disease, who has been admitted for right second digit gangrene and acute kidney injury. The patient was in no acute issues overnight. Denies nausea, vomiting, fever, chills, chest pain, or shortness of breath. PHYSICAL EXAMINATION: GENERAL: Alert and oriented x3, in no apparent distress. VITAL SIGNS: Today; temperature 97.9, heart rate 78, respiratory rate 19, blood pressure 125/71, and pulse ox 98% on room air. PROBLEM FOCUSED LOWER EXTREMITY: Vascular, dorsalis pedis and posterior tibial pulses are nonpalpable. Capillary refill time is delayed to all digits. Dry, necrotic, gangrenous changes are noted to the patient's right second digit to the level of the proximal interphalangeal joint. Negative erythema, edema, or warmth is noted. Absent pedal hair. NEUROLOGICAL: Sensation is diminished to light touch bilateral. MUSCULOSKELETAL: Negative pain on palpation to the area. Otherwise, deferred. DERMATOLOGICAL: Dry, gangrenous, necrotic changes are noted to the distal tip of the patient's right second digit and appears to be demarcated at the level of the PIPJ. Negative erythema, edema, or warmth. LABORATORY DATA: White blood cell count is 6.14, hemoglobin 11.0, hematocrit 34.9, and platelet count is 298. Sodium 140, potassium 3.9, chloride 107, CO2 of 24, BUN 36, creatinine 2.77, and glucose 101. No new imaging today. ASSESSMENT: 1. Right second digit gangrene. 2. Type 2 diabetes with peripheral neuropathy. 3. Peripheral vascular disease. PLAN: The patient was seen and evaluated. Discussed condition and treatment options with the patient in detail. Again discussed the patient has significant arterial stenosis of the right lower extremity. Dr. Tao would prefer to do peripheral angiography as an outpatient due to unstable renal function and possible nephropathy postoperatively. I discussed with the patient that the digit is dry and stable. No acute infection is noted. If plan for staged angiography as an outpatient is needed, we will plan for amputation after angiography in order to optimize wound healing results. The patient is stable in the right second digit from Podiatry standpoint and if plan is to be discharged, we would recommend local wound care with Hydrogel daily and p.o. antibiotics until amputation. The Podiatry Service will continue to monitor as inpatient. RADHA Baker/ROBBIE /[id number]
[2019-06-12] MEDS: VANCOMYCIN 1GM/NS 250 ML 250 ML IV SCH (10:52)
[2019-06-12 11:09] VITALS: BP 143/67
--- NOTE | 2019-06-12 13:30 | Progress Note ---
DATE: 06/12/2019 SUBJECTIVE: Denies any chest pain or shortness of breath. OBJECTIVE: VITAL SIGNS: Temperature 97.9, heart rate 78, blood pressure 125/71, respiratory rate 19, and O2 saturation 98%. BMI 29.1. GENERAL: In no acute distress, alert. NECK: No JVD. CHEST: Clear to auscultation. CARDIOVASCULAR: Regular rate and rhythm. Normal S1 and S2. ABDOMEN: Soft. Bowel sounds positive. EXTREMITIES: Trace edema. Gangrenous toes of right foot. SKIN: ICD pocket scar. CARDIOVASCULAR MEDICATIONS: Reviewed. 1. Aspirin 325 mg daily. 2. Furosemide 20 mg b.i.d. 3. Rosuvastatin 40 mg at bedtime. 4. Vancomycin. 5. Zosyn. 6. Tamsulosin 0.4 mg daily. 7. Hydralazine 10 mg every 4 hours. STUDIES: Sodium 140, potassium 3.9, chloride 107, bicarbonate 24, BUN 36, creatinine 2.77, and glucose 124. White blood cells 6.1, hemoglobin 9, platelets 298, and hematocrit 34.9. PT 13.8, PTT 29.2, and INR 1.01. AST 11, ALT 10, alkaline phosphatase 55, and total bilirubin 0.3. ASSESSMENT AND PLAN: A 74-year-old man presents with: 1. Acute renal failure and chronic kidney disease. 2. Anemia. 3. Peripheral arterial disease with gangrenous right toe. 4. Coronary artery disease with previous percutaneous coronary intervention. 5. Status post ICD. Volume status has improved. Continue diuretics. 6. Renal function is too labile. Given this at this point, I advised him to continue antibiotics and wound care and outpatient followup in 1-2 weeks for rechecking renal function. Once stable as renal function allows, plan for angiogram and possible revascularization to right lower extremity by Doppler with . This to be followed by Podiatry. Consideration for surgery for gangrenous toe. Discussed at length with the patient and family members. Rodolfo Gee MD AFV/MODL /[id number]
--- NOTE | 2019-06-12 14:26 | NUR ---
Spoke with Dr. Lema regarding wound care order for home health. Gave order for hydrogel to right second toe daily. Pt to follow up in clinic within 5-7 days. CM spoke to pt and daughter Erin. They are agreeable to home health. States they want to use the same company that was previously set up for pt last admission in February. Choice letter signed for [facility]. Signed copy placed in chart. Copy to pt's daughter. IMM letter delivered and explained and pt and daughter. They verbalized understanding. Signed copy placed in chart. Copt to pt's daughter. Pt asked his daughter to sign both forms. Home Health referral sent to [facility].
[2019-06-12 15:15] VITALS: BP 128/60
[2019-06-12] MEDS ORDERED: CIPRO500 MG PO (15:20)
[2019-06-12] MEDS ORDERED: DOXYCYCLINE HY100 MG PO (15:20)
[2019-06-12] MEDS ORDERED: ONDANSETRON HCL 4 MG ORAL DISINTEGRATING TAB PO PRN (16:15)
--- NOTE | 2019-06-12 16:20 | NUR ---
Received call from Shobha at [facility]. They have accepted pt and will be able to see him Monday. Amparo RN to educate pt and family on wound care prior to dc. HOME HEALTH DISCHARGE NOTE PATIENT ADDRESS WHERE SERVICE WILL BE RECEIVED: [address] [place] [address] PATIENT CONTACT NUMBER: [phone] / Pt's daughter Erin [phone] NAME OF HOME HEALTH COMPANY: [facility] TELEPHONE/FAX NUMBER OF COMPANY: P [phone] / F [phone] ADDRESS OF [employer]: [address] [place] [address] [address], [place] [address] SERVICES TO RECEIVE: SN, PT/OT ANTICIPATED DATE SERVICES WILL BEGIN: June 15, 2019 Please call the company above if you have not received a call to schedule a home visit within 24 hours of discharge.
--- NOTE | 2019-06-12 17:50 | NUR ---
Pt discharged home at this time. Wound care treatment teaching provided for pt and family member and both verbalized understanding. Pt and family verbalized understanding of all discharge instructions and follow up appts. Prescriptions for antibiotics given to pt. 0 s/s of acute distress noted at time of discharge.
--- NOTE | 2019-06-13 12:07 | Discharge Summary ---
ADMISSION DIAGNOSES: 1. Right 2nd toe necrosis. 2. Hypertension with chronic kidney disease 3 and chronic systolic congestive heart failure. 3. Chronic kidney disease 3. 4. Type 2 diabetes with chronic kidney disease 3. 5. Chronic systolic congestive heart failure. 6. Benign prostatic hypertrophy. DISCHARGE DIAGNOSES: 1. Right 2nd toe necrosis. 2. Hypertension with chronic kidney disease 3 and chronic systolic congestive heart failure. 3. Chronic kidney disease 3. 4. Type 2 diabetes with chronic kidney disease 3. 5. Chronic systolic congestive heart failure. 6. Benign prostatic hypertrophy. 7. Peripheral vascular disease. HISTORY: Hypertension, type 2 diabetes, CKD-3, CAD, chronic systolic CHF, BPH, CVA, and blind in both eyes. SURGICAL HISTORY: CABG and AICD. FAMILY HISTORY: The patient's mother and father have diabetes. SOCIAL HISTORY: Noncontributory. HOSPITAL COURSE: A 74-year-old male brought to the ER by family due to worsening right 2nd toe wound. The patient is blind, so his daughter cares for him. According to the daughter, the right 2nd toenail fell off about 1 month ago. About 2-1/2 weeks ago, they noticed a dark spot in the nailbed, which slowly turned black and continued to worsen. She was using hydrogen peroxide to care for it, but brought him to the ER when it did not improve. On admission, the patient had arterial Doppler of bilateral lower extremities, which showed significant arterial stenosis. Foot x-ray was negative for osteomyelitis. Podiatry was consulted, who plans on doing an amputation, but required cardiac clearance first. An echo was done that showed an EF of 55%. Cardio wanted to do an angiogram, but due to the patient's poor renal function, they wanted to wait. Both Podiatry and Cardiology agreed to send the patient home and do an outpatient procedure once the kidney function improves. The patient was sent home with Cipro, and doxy for 14 days and home health was arranged to apply Hydrogel daily per Podiatry recommendation. The patient and daughter understand discharge instructions and agreed to plan. Vital signs are stable. The patient is afebrile. Dictated by Ashlee Currie NP Reed Mistry MD VIOLET/MODL /[id number]
== END 2019-06-12 17:52 | disposition home health service (06) | DRG 300 ==
LOC: ER 17:12 → ERHOLD 18:53 → MED/SURG2 19:49
PROVIDERS: ADMIT Internal Medicine; ATTEND Internal Medicine
DX: E11.52 Type 2 diabetes mellitus with diabetic peripheral angiopathy with gangrene (principal); I96 Gangrene, not elsewhere classified; N17.9 Acute kidney failure, unspecified; I50.22 Chronic systolic (congestive) heart failure; I13.0 Hypertensive heart and chronic kidney disease with heart failure and stage 1 through stage 4 chronic kidney disease, or unspecified chronic kidney disease; Z79.4 Long term (current) use of insulin; E11.22 Type 2 diabetes mellitus with diabetic chronic kidney disease; N18.3 Chronic kidney disease, stage 3 (moderate); N40.0 Benign prostatic hyperplasia without lower urinary tract symptoms; I25.10 Atherosclerotic heart disease of native coronary artery without angina pectoris; Z86.73 Personal history of transient ischemic attack (TIA), and cerebral infarction without residual deficits; H54.8 Legal blindness, as defined in USA; E78.5 Hyperlipidemia, unspecified; E66.01 Morbid (severe) obesity due to excess calories; Z68.29 Body mass index [BMI] 29.0-29.9, adult
CPT/HCPCS: 36415; 71045; 80048; 80053; 80061; 81001; 82550; 82553; 82948; 83036; 83735; 84484; 85025; 85610; 85730; 87040; 87086; 93005; 93306; 93925; 99284; J2543; J3370; J7030; J7040; J7050

== ENCOUNTER → 2019-08-23 | Day surgery (SDC) | payer MEDICARE ==
[2019-08-20 16:54] LABS: BASOPHILS % 0.1 % (0.0-1.0); EOSINOPHILS % 0.2 % (0.0-6.0); HEMATOCRIT 29.6 % (38.2-49.6); HEMOGLOBIN 9.7 g/dL (14.0-18.0); LYMPHOCYTES # (AUTO) 0.9 (1.0-3.2); LYMPHOCYTES % 11.4 % (18.0-39.1); MEAN CORPUSCULAR HEMOGLOBIN 25.7 pg (28-32); MEAN CORPUSCULAR HGB CONC 32.8 g/dL (31-35); MEAN CORPUSCULAR VOLUME 78.3 fL (81-99); MONOCYTES % 12.6 % (4.4-11.3); NEUTROPHILS # (AUTO) 6.2 (2.1-6.9); NEUTROPHILS % 75.2 % (38.7-80.0); PLATELET COUNT 298 x10e3/uL (140-360); RED BLOOD COUNT 3.78 x10e6/uL (4.3-5.7); RED CELL DISTRIBUTION WIDTH 12.7 % (11.7-14.4)
[2019-08-20 17:11] LABS: ANION GAP 17.6 mmol/L (8-16); CREATININE, SERUM 5.01 mg/dL (0.72-1.25); POTASSIUM 3.6 mmol/L (3.5-5.1)
--- NOTE | 2019-08-20 17:13 | Diagnostic Imaging Report ---
EXAMINATION: CHEST 2 VIEWS INDICATION: Pre-operative COMPARISON: None FINDINGS: LINES/TUBES:Left chest AICD. LUNGS:The lungs are well-inflated. No focal consolidation or pulmonary edema. Bibasilar subsegmental atelectasis. PLEURA:No pleural effusion or pneumothorax. MEDIASTINUM:The cardiomediastinal silhouette appears normal in size and shape. BONES/SOFT TISSUES:No acute osseous injury. ABDOMEN:No free air under the diaphragm. IMPRESSION: No focal pneumonia or pulmonary edema. Bibasilar subsegmental atelectasis. Signed by: Grayson Russell MD on 08/20/2019 5:11 PM
[~2019-08-23] MED LIST changes: +BACITRACIN 50,000 UNIT VIAL ONE; +BUPIVACAINE HCL 0.5% INJ 30 ML VIAL INJ ONE; +CEFAZOLIN SOD 1 GM/NS 50ML 50 ML IV ONE; +CIPRO500 MG PO; +CLOPIDOGREL75 MG PO; +DEXAMETHASONE SOD PHOS INJ 4 MG/ML VIAL ONE; +DOXYCYCLINE HY100 MG PO; +FENTANYL CITRATE/PF 100MCG/2 ML INJ ONE; +LIDOCAINE HCL 2% LOCAL 20 ML VIAL ONE; +MIDAZOLAM HCL 2 MG/2 ML VIAL ONE; +NORCO 5-325 TA1 EACH PO; +ROPIVACAINE 0.5% 5 MG/ML 30 ML SDV ONE; +SOLIQUA 100 UNIT3 ML SC
[2019-08-23 10:37] VITALS: BP 5/8
--- NOTE | 2019-08-23 14:49 | Operative Report ---
DATE OF PROCEDURE: 08/23/2019 SURGEON: Nataliia Lema DPM PREOPERATIVE DIAGNOSIS: Right foot gangrene, osteomyelitis, abscess. POSTOPERATIVE DIAGNOSIS: Right foot gangrene, osteomyelitis, abscess. PLANNED PROCEDURE: Right foot transmetatarsal amputation. AGRICULTURAL TECHNICIAN: Dr. Yudith DPM. ANESTHESIA: IV sedation with a popliteal saphenous block and a postoperative block consisting of 15 mL of 0.5% Marcaine plain. HEMOSTASIS: Esmarch tourniquet applied for approximately 30 minutes. MATERIALS: 3-0 nylon. ESTIMATED BLOOD LOSS: Less than 10 mL. PATHOLOGY: Anaerobic and aerobic cultures of distal forefoot, sent for gross specimen. PROCEDURE NOTE: The patient was seen in the preoperative waiting room, where the correct procedure and site were identified. The patient was brought into the operating room and placed on the operating table in the supine position. General anesthesia was initiated. At this time, an Esmarch tourniquet was placed about the patient's right ankle. The right foot, ankle, and leg were then scrubbed, prepped and draped in the usual aseptic manner. Attention was directed to the distal aspect of the patient's right foot where a dry gangrene was noted on the right second digit to the level of the second metatarsophalangeal joint with fluctuant abscess formation, gangrenous changes were noted to the left hallux as well as the right third digit. The decision was made to proceed with a right transmetatarsal amputation. Utilizing two large 10 cm converging semi-elliptical incisions, the case was started. The incision was carried down directly to the level of bone. At this time, all the digits were disarticulated from the metatarsophalangeal joint and passed off to the back table. Next, utilizing a sagittal saw, five osteotomies was performed in metatarsals 1 through 5 with the 1st metatarsal osteotomy angled slightly medially and the distal 5th metatarsal osteotomy angled slightly lateral. The remaining osteotomies were dorsal distal to plantar proximal. Next, utilizing sharp dissection, the metatarsal heads were removed and passed off to the back table. The wound was then debrided of all necrotic and devitalized tissue. It should be noted that during the incision, very minimal bleeding was noted throughout the entire procedure. Wound cultures were taken at this time. The wound was then copiously irrigated with sterile saline with a Pulsavac. Next, the bone edges were trimmed and rasped to allow for no bony prominences. The incision site was prepped for closure by removing all dog-ears and debulking fat. The incision site was reapproximated utilizing simple interrupted sutures with 3-0 nylon. The incision site was then dressed with Adaptic, ABD pads, 4x4s, Kerlix, and an Benja wrap. The patient tolerated the procedure and anesthesia well. The patient was transferred to the postoperative recovery unit with vital signs stable and vascular status intact. The patient was monitored there for a short of period time before being sent home with the final written and oral instructions: 1. Keep the dressing clean, dry, and intact. 2. The patient is to remain 100% nonweightbearing to the right lower extremity to avoid any ambulation until being seen in the office. 3. The patient was given the office number and instructed to contact us if any problems arise. RADHA Baker/ROBBIE /[id number]
== END | disposition home or self-care (01) ==
LOC: OR 05:11
PROVIDERS: ATTEND Podiatrist Foot & Ankle Surgery
DX: I70.261 Atherosclerosis of native arteries of extremities with gangrene, right leg (principal); Z01.810 Encounter for preprocedural cardiovascular examination; Z01.812 Encounter for preprocedural laboratory examination; Z01.811 Encounter for preprocedural respiratory examination; I25.10 Atherosclerotic heart disease of native coronary artery without angina pectoris; Z95.1 Presence of aortocoronary bypass graft; E11.22 Type 2 diabetes mellitus with diabetic chronic kidney disease; N18.3 Chronic kidney disease, stage 3 (moderate); Z95.810 Presence of automatic (implantable) cardiac defibrillator; M86.8X7 Other osteomyelitis, ankle and foot; L02.611 Cutaneous abscess of right foot
CPT/HCPCS: 28805; 36415 ×2; 71046; 80048; 82948; 85025; 87071; 87075; 87205; 88304; 88311; 93005; J0690; J2001; J2250; J2795; J3010; J1100

== ENCOUNTER → 2019-09-06 | Outpatient (CLI) | payer MEDICARE ==
[~2019-09-06] MED LIST changes: -BACITRACIN 50,000 UNIT VIAL ONE; -BUPIVACAINE HCL 0.5% INJ 30 ML VIAL INJ ONE; -CEFAZOLIN SOD 1 GM/NS 50ML 50 ML IV ONE; -DEXAMETHASONE SOD PHOS INJ 4 MG/ML VIAL ONE; -FENTANYL CITRATE/PF 100MCG/2 ML INJ ONE; -LIDOCAINE HCL 2% LOCAL 20 ML VIAL ONE; -MIDAZOLAM HCL 2 MG/2 ML VIAL ONE; -ROPIVACAINE 0.5% 5 MG/ML 30 ML SDV ONE
== END ==
LOC: RAD 09:52
PROVIDERS: ATTEND Family Medicine Adult Medicine
DX: T86.821 Skin graft (allograft) (autograft) failure (principal); Z01.810 Encounter for preprocedural cardiovascular examination
CPT/HCPCS: 93306

== ENCOUNTER 2019-09-13 13:38 | Outpatient (RCR) | payer MEDICARE | END 2019-09-14 | LOC: WCC 13:38 | PROVIDERS: ATTEND Family Medicine Adult Medicine | DX: T86.821 Skin graft (allograft) (autograft) failure (principal); E11.52 Type 2 diabetes mellitus with diabetic peripheral angiopathy with gangrene; E11.621 Type 2 diabetes mellitus with foot ulcer; I13.0 Hypertensive heart and chronic kidney disease with heart failure and stage 1 through stage 4 chronic kidney disease, or unspecified chronic kidney disease; I70.203 Unspecified atherosclerosis of native arteries of extremities, bilateral legs; N17.9 Acute kidney failure, unspecified; N18.3 Chronic kidney disease, stage 3 (moderate); H54.8 Legal blindness, as defined in USA; I50.22 Chronic systolic (congestive) heart failure; E78.5 Hyperlipidemia, unspecified; E66.01 Morbid (severe) obesity due to excess calories; N40.0 Benign prostatic hyperplasia without lower urinary tract symptoms; Z01.810 Encounter for preprocedural cardiovascular examination; Z68.29 Body mass index [BMI] 29.0-29.9, adult; Z79.4 Long term (current) use of insulin; Z86.73 Personal history of transient ischemic attack (TIA), and cerebral infarction without residual deficits | CPT/HCPCS: 36415 ×2; 82948 ×2; 87071; 87075; 87205; 93922; 99204; 99212; 99213; G0277 ×2 ==

== ENCOUNTER → 2019-09-25 | Outpatient (CLI) | payer MEDICARE ==
--- NOTE | 2019-09-25 13:57 | Diagnostic Imaging Report ---
EXAMINATION: FOOT RIGHT COMPLETE INDICATION: Postoperative COMPARISON: None FINDINGS: Status post transmetatarsal amputation of first through fifth rays. There is soft tissue irregularity along the medial aspect of the midfoot at the level of the first proximal metatarsal shaft. No acute fracture or dislocation. No specific radiographic findings of osteomyelitis. Atherosclerotic arterial calcifications. IMPRESSION: No acute osseous injury. No specific radiographic findings of osteomyelitis. Soft tissue irregularity along the medial aspect of the proximal first metatarsal shaft compatible with laceration or ulceration. Signed by: Grayson Russell MD on 09/25/2019 1:54 PM
== END ==
LOC: RAD 13:04
PROVIDERS: ATTEND Family Medicine
DX: T86.821 Skin graft (allograft) (autograft) failure (principal)

== ENCOUNTER 2019-10-02 15:04 | Outpatient (RCR) | payer MEDICARE ==
[~2019-10-02 15:04] MED LIST changes: +MINERAL OIL/PETROLAT/GLYCERI 6OZ BTL ONE
== END 2019-10-15 ==
LOC: WCC 15:04
PROVIDERS: ATTEND Family Medicine Adult Medicine
DX: T86.821 Skin graft (allograft) (autograft) failure (principal); E11.52 Type 2 diabetes mellitus with diabetic peripheral angiopathy with gangrene; E11.621 Type 2 diabetes mellitus with foot ulcer; N17.9 Acute kidney failure, unspecified; N18.3 Chronic kidney disease, stage 3 (moderate); I13.0 Hypertensive heart and chronic kidney disease with heart failure and stage 1 through stage 4 chronic kidney disease, or unspecified chronic kidney disease; I70.203 Unspecified atherosclerosis of native arteries of extremities, bilateral legs; E78.5 Hyperlipidemia, unspecified; I69.998 Other sequelae following unspecified cerebrovascular disease; E66.01 Morbid (severe) obesity due to excess calories; H54.8 Legal blindness, as defined in USA; I50.22 Chronic systolic (congestive) heart failure; N40.0 Benign prostatic hyperplasia without lower urinary tract symptoms; Z79.4 Long term (current) use of insulin; Z68.29 Body mass index [BMI] 29.0-29.9, adult; Z01.810 Encounter for preprocedural cardiovascular examination
CPT/HCPCS: 36415 ×5; 82948 ×6; 99213 ×7; G0277 ×9